=== PATIENT | female | born 1950 | race Caucasian/White ===

== ENCOUNTER 2018-07-13 21:32 | Inpatient (IN) | payer OTHER ==
[~2018-07-13] VITALS: Ht 167.6 cm; Wt 81.6 kg
[2018-07-13 21:38] VITALS: BP 108/77
--- NOTE | 2018-07-13 21:38 | NUR ---
Patient CHUYITA MIGUEL from [facility], transferred to bed 1. RN evaluating patient at bedside.
--- NOTE | 2018-07-13 21:40 | NUR ---
PT VERBALIZED SHE IS IN NO PAIN. FLACC-0. NO S/S OF DISTRESS NOTED
--- NOTE | 2018-07-13 21:40 | NUR ---
68 Y/O F BIB AMBULACE W/C/O HEMATURIA THAT HAS BEEN INCREASING SINCE THIS AM. SKIN IS PINK/WARM/DRY; AAOX1, PERRL; LUNGS CLEAR BL, BREATHING UNLABORED; HR EVEN AND REGULAR, BL PERIPHERAL PULSES PRESENT; BS ACTIVE X4, NO TENDERNESS TO PALPATION, NO HEPATOSPLENOMEGALLY PALPATED, RESONANT TO PERCUSSION; PT DENIES ANY FEVER, CP, SOB, OR COUGH AT THIS TIME; PT STATES 0/10 PAIN AT THIS TIME; VSS; HEMATURIA NOTED IN NORMAN CATHETER, DARK RED; PATIENT POSITIONED FOR COMFORT; HOB ELEVATED; BEDRAILS UP X2; BED DOWN.
[2018-07-13 21:45] VITALS: BP 94/50
[2018-07-13] MEDS ORDERED: NACL 0.9% 500 ML IV ONE ×2 (22:05)
--- NOTE | 2018-07-13 22:30 | NUR ---
PT RESTING COMFORTABLY IN BED. NAD. RR EVEN UNLABORED
[2018-07-13 22:53] LABS: BASOPHILS # (AUTO) 0.1 K/uL (0.00-0.22); BASOPHILS % (AUTO) 1.1 % (0.0-2.0); EOSINOPHILS # (AUTO) 0.3 K/uL (0-0.4); EOSINOPHILS % (AUTO) 2.6 % (0.0-4.0); HEMOGLOBIN 11.3 g/dL (12.0-16.0); LYMPHOCYTES % (AUTO) 15.3 % (20.5-51.1); MEAN CORPUSCULAR HEMOGLOBIN 28 pg (27-31); MEAN CORPUSCULAR HGB CONC 32 g/dL (33-37); MEAN CORPUSCULAR VOLUME 84.8 fL (80-94); MONOCYTES # (AUTO) 0.8 K/uL (0.8-1.0); MONOCYTES % (AUTO) 6.2 % (1.7-9.3); NEUTROPHILS # (AUTO) 9.7 K/uL (1.8-7.7); NEUTROPHILS % (AUTO) 74.8 % (42.2-75.2); PLATELET COUNT (AUTO) 434 K/uL (140-450); RED BLOOD CELL COUNT(AUTO) 4.12 MIL/uL (4.20-5.40); RED CELL DISTRIBUTION WIDTH 15.9 % (11.6-13.7)
[2018-07-13 23:05] LABS: ANION GAP 10.4 (8-16); CARBON DIOXIDE 32.4 mmol/L (21-32); CREATININE 0.5 mg/dL (0.6-1.3); POTASSIUM 4.8 mmol/L (3.5-5.1)
[2018-07-13 23:10] LABS: ALBUMIN 2.6 g/dL (3.4-5.0); TOTAL BILIRUBIN 0.1 mg/dL (0.0-1.0)
[2018-07-13 23:11] LABS: PROTHROMBIN TIME 9.1 secs (10.8-13.4)
[2018-07-13 23:17] LABS: APPEARANCE,URINE TURBID (CLEAR); BILIRUBIN,URINE 3+ (NEGATIVE); BLOOD, URINE 3+ (NEGATIVE); COLOR,URINE RED (YELLOW); LEUKOCYTE ESTERASE ,URINE 2+ (NEGATIVE); NITRITE, URINE POSITIVE (NEGATIVE); PH,URINE 8.5 (5.0-9.0); UGLUCOSE NEGATIVE (NEGATIVE)
[2018-07-13] MEDS ORDERED: LEVOFLOXACIN 500 MG/D5W PREMIX 100 ML IV ONE (23:25)
[2018-07-13] MEDS ORDERED: NACL 0.9% 2,500 ML IV ONE (23:25)
[2018-07-13] MEDS ORDERED: PIPERACILLIN/TAZOBACTAM 3.375 GM in DEXTROSE 5% 50 ML IV ONE (23:25)
[2018-07-13] MEDS ORDERED: PIPERACILLIN/TAZOBACTAM 3.375 GM VIAL IV ONE (23:32)
[2018-07-14] LABS: RBC,URINE TOO NUMEROUS TO COUN /HPF (0-5); WBC,URINE TOO MANY TO COUNT /HPF (0-5)
--- NOTE | 2018-07-14 | NUR ---
PT RESTING COMFORTABLY IN BED. NAD. RR EVEN UNLABORED
[2018-07-14 00:01] LABS: RED BLOOD CELL CASTS,URINE 0-10 /LPF (None Seen)
--- NOTE | 2018-07-14 00:10 | NUR ---
NEW NORMAN CATHETER PLACED AT THIS TIME, 200 ML OUTPUT
[2018-07-14] MEDS ORDERED: ACETAMINOPHEN 325 MG TAB PO PRN (00:25)
[2018-07-14] MEDS ORDERED: ONDANSETRON 4 MG/2 ML VIAL IVP PRN (00:25)
[2018-07-14] MEDS ORDERED: HYDROcodone/APAP 7.5/325 MG 1 TAB PO PRN (00:25)
--- NOTE | 2018-07-14 01:30 | NUR ---
Patient will be admitted to care of DR. WILDE. Admited to TELE. Will go to room 108B. Belongings list completed. Report to OLIVIA COUGHLIN. PICTURE TAKEN OF SACRAL WOUND
[2018-07-14] MEDS ORDERED: DEXTROSE 50% 50 ML SYR IVP PRN (01:35)
[2018-07-14] MEDS ORDERED: SODIUM PHOSPHATE 118 ML ENEM RC PRN (01:35)
[2018-07-14 01:36] LABS: FREE T4 (FREE THYROXINE) 0.94 ng/dL (0.76-1.46); MAGNESIUM 1.3 mg/dL (1.8-2.4); PHOSPHORUS 3.4 mg/dL (2.5-4.9); THYROID STIMULATING HORMONE 1.72 uIU/mL (0.34-3.74)
[2018-07-14 01:40] VITALS: BP 124/63
--- NOTE | 2018-07-14 01:40 | NUR ---
ADMITTED PT. FROM ER PER SHIRA AWAKE AND ALERT. NONE VERBAL. TRACKS TRENCHING MACHINE OPERATOR WITH EYES. MAXIMUM CARE RT GENERALIZED WEAKNESS. HX. OF DEMENTIA .DX. OF UTI AND FECAL IMPACTION. NORMAN CATHETER IN PLACE WITH REDDISH IN COLOR URINE. 02 AT 2LPM/NC WITH 02 SAT AT 98 %. HX. OF DEMENTIA. ROM X 4. BED ALARM ON AND CALL LIGHT WITH IN REACH. CARDIAC TELEMETRY MONITORING. NSR . AFEBRILE. WITH WOUND NOTED TO SACRO-COCCYGEAL . HEEL PROTECTORS IN PLACE. IVF SITE TO RAC#20 . PT. WITH SOFT BM. CLEANED WELL. KEPT WARM, CLEAN AND COMFORTABLE. NEEDS WILL BE ANTICIPATED AND MET. WILL TURN Q 2H.
--- NOTE | 2018-07-14 02:00 | NUR ---
PT.S WOUND TO SACRO - COCCYGEAL AREA CLEANSED WITH NS, PAT DRIED WITH GAUZE AND COVERED WITH STRASORB COMPOSITE. INFORMED RESIDENT MD OF WOUND PRESENT. NO ORDERS FOR NOW.
[2018-07-14] MEDS: DEXT 5% /NACL 0.9% 1,000 ML IV SCH ×2 (02:26→15:33)
--- NOTE | 2018-07-14 03:00 | NUR ---
PT. PLACED ON ISOLATION PRECAUTION PROTOCOL RT HX. 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 AFEBRILE. NEEDS ANTICIPATED AND MET. HAD PASTY IN CONSISTENCY STOOL. KEPT CLEAN AND DRY.
[2018-07-14] MEDS ORDERED: INSU100S53 SC (05:19)
[2018-07-14] MEDS ORDERED: AMLO5TAB PO (05:19)
[2018-07-14] MEDS ORDERED: METF850T PO (05:19)
[2018-07-14] MEDS ORDERED: VAS10 PO (05:19)
[2018-07-14] MEDS ORDERED: OLAN20TA1 PO (05:19)
[2018-07-14] MEDS ORDERED: OXCA150T2 PO (05:19)
[2018-07-14] MEDS ORDERED: ASPI81CT89 PO (05:19)
[2018-07-14] MEDS ORDERED: ATI.5 PO (05:19)
[2018-07-14] MEDS ORDERED: ALBUTEROL SULFATE/IPRATROPIU 3 ML SOL IH PRN (05:20)
[2018-07-14 05:42] VITALS: BP 122/64
[2018-07-14] MEDS ORDERED: MAG SULF 2000 MG/WATER PREMIX 50 ML IV SCH (06:00)
[2018-07-14] MEDS ORDERED: PIPERACILLIN/TAZOBACTAM 3.375 GM VIAL IV ONE (06:02)
[2018-07-14] MEDS: PIPER/TAZO 3.375GM/D5W PREMIX 50 ML IV SCH ×4 (06:04→23:14)
[2018-07-14] MEDS: BLOOD GLUCOSE MONITORING 1 DEV DEV FS SCH ×4 (06:11→20:54)
--- NOTE | 2018-07-14 06:44 | NUR ---
PT. SLEEPING AT THIS TIME. COMFORTABLE. FLACC 0. TELEMETRY MONITORING. NEEDS ANTICIPATED AND MET. TURNED TO SIDES Q 2H . PILLOW SUPPORT TO PRESSURE AREAS.
[2018-07-14 06:51] LABS: BASOPHILS # (AUTO) 0.2 K/uL (0.00-0.22); EOSINOPHILS # (AUTO) 0.2 K/uL (0-0.4); EOSINOPHILS % (AUTO) 1.7 % (0.0-4.0); HEMATOCRIT 32.3 % (36-48); HEMOGLOBIN 10.4 g/dL (12.0-16.0); LYMPHOCYTES # (AUTO) 4.1 K/uL (2.5-16.5); LYMPHOCYTES % (AUTO) 34.6 % (20.5-51.1); MEAN CORPUSCULAR HEMOGLOBIN 27 pg (27-31); MEAN CORPUSCULAR HGB CONC 32 g/dL (33-37); MEAN CORPUSCULAR VOLUME 85.5 fL (80-94); MONOCYTES # (AUTO) 1.9 K/uL (0.8-1.0); MONOCYTES % (AUTO) 16.1 % (1.7-9.3); NEUTROPHILS # (AUTO) 5.4 K/uL (1.8-7.7); NEUTROPHILS % (AUTO) 45.6 % (42.2-75.2); PLATELET COUNT (AUTO) 403 K/uL (140-450); RED BLOOD CELL COUNT(AUTO) 3.78 MIL/uL (4.20-5.40); RED CELL DISTRIBUTION WIDTH 15.8 % (11.6-13.7); WHITE BLOOD COUNT (AUTO) 11.8 K/uL (4.8-10.8)
[2018-07-14 07:08] LABS: ANION GAP 8.2 (8-16); CARBON DIOXIDE 31.9 mmol/L (21-32); CREATININE 0.3 mg/dL (0.6-1.3); POTASSIUM 4.1 mmol/L (3.5-5.1)
[2018-07-14 07:20] LABS: MAGNESIUM 1.3 mg/dL (1.8-2.4); PHOSPHORUS 3.1 mg/dL (2.5-4.9)
--- NOTE | 2018-07-14 07:25 | NUR ---
ENDORSED TO THE NEXT RN FOR CONTINUITY OF CARE. SLEEPING.
--- NOTE | 2018-07-14 07:30 | NUR ---
RECEIVED PT FROM SOFTWARE PUBLISHER NURSE, PT IS ASLEEP AND LYING ON THE BED, RESPIRATIONS EVEN, FALL PRECAUTION INITIATED, SIDE RAILS ARE UP AND CALL LIGHT WITHIN REACH, BED IN LOW POSITION. PT HAS A NORMAN CATHETER IN PLACE AND AN IV LINE ON THE RT AC G.20 WITH D5NS AT 80ML/HR, INTACT AND INFUSING WELL. PT IS ON O2 2L VIA NC, NO SIGN OF DISTRESS NOTED AND WILL CONTINUE TO MONITOR.
[2018-07-14 08:00] VITALS: BP 125/64
[2018-07-14] MEDS ORDERED: BISACODYL 10 MG SUPP RC SCH (08:00)
[2018-07-14 09:02] LABS: CHOL/HDL RATIO 3.7 (1-4.5)
--- NOTE | 2018-07-14 09:46 | NUR ---
PATIENT HAS BEEN SCREENED AND CATEGORIZED HIGH NUTRITION RISK. PATIENT WILL BE SEEN WITHIN 1-2 DAYS OF ADMISSION. 07/14/18 07/15/[address]
[2018-07-14] MEDS: DOCUSATE SODIUM 100 MG GELCAP PO SCH ×2 (09:54→21:13)
[2018-07-14] MEDS: OXcarbazepine 150 MG TAB PO SCH ×2 (09:54→21:14)
[2018-07-14] MEDS: metFORMIN 850 MG TAB PO SCH ×2 (09:54→17:06)
[2018-07-14] MEDS: ASPIRIN 81 MG TAB.CHEW PO SCH (09:54)
[2018-07-14] MEDS: amLODIPine 5 MG TAB PO SCH (09:58)
[2018-07-14] MEDS: ENALAPRIL 10 MG TAB PO SCH ×2 (09:58→21:15)
--- NOTE | 2018-07-14 10:15 | NUR ---
DR. GOMEZ CAME TO THE PT'S ROOM AND CHECKED ON THE PT. SAID THAT HE WILL PLACE AN ORDER FOR THE PT.
--- NOTE | 2018-07-14 10:30 | NUR ---
WOUND CARE NURSE, JOHN, ASSESSED AND REINFORCED THE PT'S SACRO-COCCYGEAL PRESSURE ULCER. PT HAS NO SIGN OF DISTRESS AT THIS TIME.
--- NOTE | 2018-07-14 10:45 | NUR ---
WOUND CARE EVALUATION NOTES: REASON FOR EVALUATION: SACROCOCCYX ULCER COMPLETE SKIN ASSESSMENT DONE WITH PRIMARY RN ON THIS 68 Y/O FEMALE PATIENT FROM [facility] TO [facility], WITH INITIAL DX OF HEMATURIA. PAST MEDICAL HISTORY INCLUDE CHF, DIABETES, HYPERTENSION, CAD AND DEMENTIA. ABOVE INFORMATION OBTAINED FROM THE ADMISSION H&P. PT. ADMITTED WITH PRESSURE INJURY STAGE 4 ON SACRAL COCCYX. LABS ARE WBC 11.8, H/H 10.4/32.3, GLUCOSE 93 AND ALBUMIN 2.6. PATIENT IS NON-VERBAL. SKIN WARM TO TOUCH. NO HAIR GROWTH BLE AND BILATERAL PEDAL PULSES PRESENT. NORMAN CATHETER PATENT AND BLOODY COLORED URINE IN MODERATE AMOUNT OBSERVED. INCONTINENT OF BOWEL X1 DURING ASSESSMENT. PT. NEEDS MAX. ASSISTANCE IN TURNING. PLAN OF CARE DISCUSSED WITH PRIMARY RN. INTEGUMENTARY: -INTERTRIGO TO ABDOMINAL FOLDS, REDNESS WITH SKIN INTACT -SACROCOCCYX PRESSURE ULCER STAGE 4 WITH 1.5X1.5X0.5CM WITH UNDERMINING BETWEEN 6 O'CLOCK TO 8 O'CLOCK WITH DEEPEST AT 7 O'CLOCK MEASURED 0.5 CM DEEP, WOUND BED 100% GRANULATING TISSUE, MOIST, NO ODOR, WOUND EDGE FLAT AND OLIVIA-WOUND SKIN INTACT. -INCONTINENT ASSOCIATED DERMATITIS (IAD) R/L INNER BUTTOCKS EXTENDED TO OLIVIA-ANAL AREA, REDNESS, SKIN INTACT. RECOMMENDATIONS: - CLEAN ABDOMINAL FOLDS WITH MILD SOAP AND WATER, PAT DRY. APPLY INTERDRY CLOTH QD AND CHANGE WEEKLY AND PRN IF SOILING - CLEAN SACROCOCCYX PRESSURE ULCER WITH NS, PAT DRY, APPLY THERAHONEY DRESSING SHEET TO WOUND BED AND COVER WITH OPTIFORM DRESSING QD AND PRN IF SOILING - CLEAN R/L INNER BUTTOCKS EXTENDED TO OLIVIA-ANAL AREA WITH SOAP AND WATER, PAT DRY APPLY HYDRAGUARD BIDWC AND PRN IF SOILING AND OPEN TO AIR -TURN AND REPOSITION PATIENT Q2H TO LEFT AND RIGHT SIDE ONLY TO OFFLOAD SACROCOCCYX -ASSESS AND MONITOR SKIN CONDITION DURING POSITION CHANGE, PLEASE PAY ATTENTION TO SACROCOCCYX -OFFLOAD BILATERAL HEELS BY PLACING PILLOWS UNDER CALVES AT ALL TIMES, UNLESS OTHERWISE CONTRAINDICATED -PRESSURE REDISTRIBUTION SURFACE THERAPY -KEEP SKIN CLEAN AND DRY AT ALL TIMES. RECOMMENDATIONS DISCUSSED WITH PRIMARY RN WILL FOLLOW UP PATIENT Q 7 -10 DAYS AND PRN. PLEASE CONTACT WOUND CARE NURSE FOR ANY CONCERNS AND CHANGES IN WOUND CONDITION Addendum: 07/14/18 at 1118 by Lisandra Doyle RN (Grace) DR. BLANCO NOTIFIED OF RECOMMENDATIONS.
--- NOTE | 2018-07-14 11:30 | NUR ---
DR. BLANCO IS TALKING TO THE PT'S NIECE RIGHT NOW AND EXPLAINING TO THE FAMILY ABOUT THE PT'S STATUS AND PLAN OF CARE.
[2018-07-14 12:00] VITALS: BP 120/74
[2018-07-14] MEDS ORDERED: MAGNESIUM CITRATE 300 ML BTL PO SCH (12:00)
--- NOTE | 2018-07-14 12:30 | NUR ---
Plastic Eye Technician Notes: I attempted to contact Patient's Niece Kristan Cuelloantes to discuss and gather Patient's information. Patient's Niece was not available and I left her a Voice mail MSG with my direct contact information and a request for a call back.
--- NOTE | 2018-07-14 12:44 | NUR ---
S.T. BEDSIDE SWALLOW EVAL COMPLETED See report for details. Pt presents with mod-severe oropharyngeal dysphagia c/b coughing after swallows of thin and nectar thick liquids. Pt is at high risk for aspiration. Recommend: 1) Pureed diet, HONEY THICK LIQUIDS ONLY (including water--needs to be thickened to honey consistency) 2) Crush P.O. meds and mix with puree. 3) 1:1 feeder w/ aspiration precautions. 4) S.T. to f/u x1 in 1 day to ensure tolerance of recommended diet textures. Time in/out [id number] [id number] CL G8997 CL NOMS LEVEL 6
[2018-07-14] MEDS: SENNA 8.6 MG TAB PO SCH ×2 (13:56→17:06)
--- NOTE | 2018-07-14 14:19 | NUR ---
FEED PT WITH APPLE SAUCE AND A HONEY THICKENED LIQUID, ASPIRATION PRECAUTION ENFORCED. PT TOLERATED THE FEEDING WELL WITH NO SIGN OF DISTRESS NOTED. DEBI ALMONTE PT.
--- NOTE | 2018-07-14 15:17 | NUR ---
07/14/18 RD INITIAL ASSESSMENT COMPLETED PLEASE REFER TO NUTRITION ASSESSMENT UNDER CARE ACTIVITY FOR ESTIMATED NUTRITIONAL NEEDS. 1. RECOMMEND CCHO 60 GM PUREED DIET WITH HONEY THICK LIQUIDS 2. RD TO FOLLOW-UP 2-3 DAYS, HIGH RISK SUSAN LOWRY RD
[2018-07-14] MEDS ORDERED: THERAHONEY WOUND DRESSING TP PRN (15:25)
[2018-07-14 16:00] VITALS: BP 124/59
--- NOTE | 2018-07-14 16:30 | NUR ---
PT IS AWAKE AND BLOOD GLUCOSE CHECK DONE AND RESULT IS 99. MEDICATIONS GIVEN AND PT TOLERATED IT. NO SIGN OF DISTRESS NOTED. WILL MONITOR
[2018-07-14] MEDS: Z-GUARD PASTE TP PRN (17:08)
--- NOTE | 2018-07-14 18:00 | NUR ---
PT WAS REPOSITIONED AND CLEANED AND DRESSING WAS CHANGED AND REINFORCED WITH THERAHONEY DRESSING.
--- NOTE | 2018-07-14 19:30 | NUR ---
ASSUMED CARE OF PATIENT, AWAKE, APHASIC. NO DISTRESS NOTED. REPOSITIONED WITH ROAD HOGGER OPERATOR. CALL LIGHT WITHIN REACH.
--- NOTE | 2018-07-14 19:40 | NUR ---
ENDORSED PT TO FORM TAMPER OPERATOR NURSE, GRANT, PT IS ASLEEP LYING ON THE BED WITH RESPIRATIONS EVEN. PT IS TABLE AT THIS TIME.
[2018-07-14 20:00] VITALS: BP 122/52
--- NOTE | 2018-07-14 20:00 | NUR ---
CARE BOARD UPDATED. PLAN OF CARE DISCUSSED WITH PATIENT, NEEDS REINFORCEMENT. CALL LIGHT WITHIN REACH.
[2018-07-14] MEDS ORDERED: OLANZapine 5 MG TAB PO SCH (21:00)
[2018-07-14] MEDS: INSULIN LISPRO SLIDING SCALE 100 UNITS/ML VIAL SUBQ PRN (21:08)
[2018-07-14] MEDS: INSULIN LANTUS 100 UNITS/ML 10 ML VIAL SUBQ SCH (21:09)
[2018-07-14] MEDS: LACTULOSE 20 GM/30 ML UDC PO SCH (21:13)
[2018-07-14] MEDS: OLANZapine 5 MG TAB PO SCH (21:15)
--- NOTE | 2018-07-14 21:15 | NUR ---
REPOSITIONED TO LEFT SIDE LYING. DRESSING ON SACRAL AREA DRY AND INTACT. DUE MEDS GIVEN. IV INFILTRATED. CALL LIGHT WITHIN REACH.
--- NOTE | 2018-07-15 | NUR ---
SLEEPING WELL. VITAL SIGNS STABLE. NO COMPLAINS OR DISTRESS NOTED. CALL LIGHT WITHIN REACH. REPOSITIONED TO SUPINE POSITION.
[2018-07-15 00:02] VITALS: BP 120/56
[2018-07-15] MEDS: DEXT 5% /NACL 0.9% 1,000 ML IV SCH (02:42)
[2018-07-15 04:37] VITALS: BP 110/65
--- NOTE | 2018-07-15 04:38 | NUR ---
VITAL SIGNS STABLE. SLEEPING WELL, EASILY AROUSABLE. CALL LIGHT WITHIN REACH. NO COMPLAINS. REPOSITIONED TO LEFT SIDE LYING. PERICARE DONE.
[2018-07-15] MEDS: PIPER/TAZO 3.375GM/D5W PREMIX 50 ML IV SCH ×3 (05:03→17:55)
[2018-07-15] MEDS: BLOOD GLUCOSE MONITORING 1 DEV DEV FS SCH ×4 (06:08→20:55)
--- NOTE | 2018-07-15 07:19 | NUR ---
ENDORSED CARE AT BEDSIDE WITH ELTON RN ,PATIENT IN STABLE CONDITION.
--- NOTE | 2018-07-15 07:30 | NUR ---
RECEIVED REPORT FROM PAPER MACHINE TENDER RN. PATIENT IS DROWSY AND LETHARGIC. PT IS APHASIC. UNABLE TO ASSESS ORIENTATION AT THIS TIME. F/C IN PLACE DRAINING DARK SHARDA URINE. ON 2L NC, SATURATING WELL. WOUND ON SACROCOCCYX, DRESSING CLEAN, DRY, INTACT. INCONTINENT DERMATITIS TO PERINEAL AREA. PER PAPER MACHINE TENDER RN, PT HAS BEEN HAVING MULTIPLE EPISODES OF DIARRHEA. LUNGS CTA/DIMINISHED. IV SITE PATENT AND ASYMPTOMATIC, RUNNING IVF PER MD ORDERS. ALL SAFETY PRECAUTIONS IN PLACE, WILL CONTINUE TO MONITOR.
[2018-07-15 08:00] VITALS: BP 93/42
[2018-07-15 08:51] LABS: BASOPHILS % (AUTO) 0.3 % (0.0-2.0); EOSINOPHILS # (AUTO) 0.3 K/uL (0-0.4); EOSINOPHILS % (AUTO) 3.7 % (0.0-4.0); HEMATOCRIT 33.6 % (36-48); HEMOGLOBIN 10.7 g/dL (12.0-16.0); LYMPHOCYTES # (AUTO) 1.6 K/uL (2.5-16.5); LYMPHOCYTES % (AUTO) 17.9 % (20.5-51.1); MEAN CORPUSCULAR HEMOGLOBIN 28 pg (27-31); MEAN CORPUSCULAR HGB CONC 32 g/dL (33-37); MEAN CORPUSCULAR VOLUME 86.4 fL (80-94); MONOCYTES # (AUTO) 0.6 K/uL (0.8-1.0); NEUTROPHILS # (AUTO) 6.4 K/uL (1.8-7.7); NEUTROPHILS % (AUTO) 71.1 % (42.2-75.2); PLATELET COUNT (AUTO) 394 K/uL (140-450); RED BLOOD CELL COUNT(AUTO) 3.88 MIL/uL (4.20-5.40); RED CELL DISTRIBUTION WIDTH 16.1 % (11.6-13.7); WHITE BLOOD COUNT (AUTO) 8.9 K/uL (4.8-10.8)
[2018-07-15] MEDS: SENNA 8.6 MG TAB PO SCH ×2 (09:00→20:43)
[2018-07-15] MEDS: LACTULOSE 20 GM/30 ML UDC PO SCH (09:00)
[2018-07-15] MEDS: DOCUSATE SODIUM 100 MG GELCAP PO SCH ×3 (09:00→21:00)
[2018-07-15] MEDS: ENALAPRIL 10 MG TAB PO SCH ×2 (09:00→20:42)
[2018-07-15] MEDS: amLODIPine 5 MG TAB PO SCH (09:00)
[2018-07-15] MEDS: OXcarbazepine 150 MG TAB PO SCH ×2 (09:05→20:43)
[2018-07-15] MEDS: metFORMIN 850 MG TAB PO SCH ×2 (09:05→18:02)
[2018-07-15] MEDS: ASPIRIN 81 MG TAB.CHEW PO SCH (09:06)
[2018-07-15 09:09] LABS: ANION GAP 4.3 (8-16); CARBON DIOXIDE 33.6 mmol/L (21-32); CREATININE 0.3 mg/dL (0.6-1.3); POTASSIUM 3.9 mmol/L (3.5-5.1)
[2018-07-15 09:13] LABS: MAGNESIUM 1.8 mg/dL (1.8-2.4); PHOSPHORUS 3.4 mg/dL (2.5-4.9)
[2018-07-15] MEDS ORDERED: MAG SULF 2000 MG/WATER PREMIX 100 ML IV ONE (09:20)
[2018-07-15] MEDS ORDERED: MAGNESIUM SULFATE 4GM in STERILE WATER 100 ML PREMIX IV SCH (10:00)
--- NOTE | 2018-07-15 10:02 | NUR ---
PATIENT'S BP IS NOW MORE HEMODYNAMICALLY STABLE AT 119/54. DR. BLANCO HAS BEEN NOTIFIED OF THIS PER HIS REQUEST. Addendum: 07/15/18 at 1836 by Amy Truong Meng, RN COMPARED TO 0800 VITALS CHARTED IN INTERVENTIONS.
--- NOTE | 2018-07-15 10:16 | NUR ---
PATIENT ASSESSMENT COMPLETED LOC AWAKE AND ALERT RESPONSIVE TO EARLY MORNING VERBAL COMMANDS PATIENT C/O SOB AND NASAL DRYNESS FROM SUPPLEMENTAL OXYGEN USE REVIEWED CXR DATED 07/14/2018 [facility] PRN THERAPY GIVEN AT THIS TIME POST HHN THERAPY ADDED HUMIDIFIER EARLY MORNING TO REVIEW PULMONARY STATUS, DIAGNOSTIC FINDINGS WITH DR VIKI WILDE OR RESIDENT MD FOR CHANGE IN HHN THERAPY FREQUENCY Addendum: 07/15/18 at 1040 by Dennis Bailey RT REVIEWED FOREMENTIONED WITH DR RUPINDER BLANCO WILL INITIATE FREQUENCY CHANGE TO Q6WA WITH SUPPLEMENTAL OXYGEN GREATER THAN 92%
[2018-07-15] MEDS: NACL 0.9% 1,000 ML IV SCH (10:20)
--- NOTE | 2018-07-15 10:56 | NUR ---
COAGULATED BLOOD NOTED IN PERINEAL AREA. UNABLE TO TELL WHERE THE BLOOD ORIGINATES FROM. DR. BLANCO HAS BEEN NOTIFIED AND HAS SEEN THE PATIENT PERSONALLY. WILL CONTINUE TO MONITOR. PT HAS NO COMPLAINTS OF PAIN OR DISCOMFORT AT THIS TIME. VITALS STABLE.
--- NOTE | 2018-07-15 11:50 | NUR ---
PER , CONTINUE TO GIVE LAXATIVES AND STOOL SOFTENERS. Addendum: 07/15/18 at 1830 by Amy Truong Meng RN WILL ENDORSE TO MANAGER BALANCE MADYSON.
[2018-07-15 12:00] VITALS: BP 120/44
[2018-07-15] MEDS: ALBUTEROL SULFATE/IPRATROPIU 3 ML SOL IH SCH ×2 (14:07→19:31)
--- NOTE | 2018-07-15 14:11 | NUR ---
LARGE LOOSE/MUSHY BOWEL MOVEMENT. WILL CONTINUE TO MONITOR.
--- NOTE | 2018-07-15 15:40 | NUR ---
SMALL LOOSE BOWEL MOVEMENT. NORMAN CATH DRAINING RED COLORED URINE. DR. BLANCO IS AWARE. WILL CONTINUE TO MONITOR.
[2018-07-15 16:00] VITALS: BP 119/58
[2018-07-15] MEDS: CHLORHEXADINE GLUC 2% CLOTH TP SCH (17:56)
[2018-07-15] MEDS: MUPIROCIN CA NASAL 2% 1GM TUBE NS SCH (17:56)
--- NOTE | 2018-07-15 18:05 | NUR ---
PT BEING UNCOOPERATIVE WITH TREATMENT. METFORMIN CRUSHED WITH APPLE SAUCE WAS TAKEN WITHOUT ISSUE. HOWEVER BECAME COMBATIVE WHEN ADMINISTERING THE BACTROBAN NASALLY AND CHLORHEXIDINE CLOTH. BACTROBAN WAS APPLIED TO BILATERAL NARES BUT WAS UNABLE TO MASSAGE FOR FULL MINUTE PATIENT WAS PUSHING ME AWAY. CHLORHEXIDINE WIPES WERE USED ON BILATERAL LOWER EXTREMITIES ONLY. WILL ENDORSE TO PORTRAIT PAINTER RN.
--- NOTE | 2018-07-15 18:34 | NUR ---
BLOOD NOTED ON HORTENCIA. PT HAS NO COMPLAINTS OF PAIN OR DISCOMFORT. VITALS ARE STABLE. WILL INFORM SURVEILLANCE OBSERVER RN AND MD.
--- NOTE | 2018-07-15 18:35 | NUR ---
COMPARED TO 0800 VITALS CHARTED IN INTERVENTIONS. Addendum: 07/15/18 at 1836 by Amy Truong Meng, RN WRONG TIME.
--- NOTE | 2018-07-15 18:37 | NUR ---
PER CERTIFIED DRUG COUNSELOR, PT IS COMBATIVE AGAIN. PT NOT SEEN PULLING AT IV. PT PULLING AT GOWN AND HEART MONITOR WAS DISCONNECTED. CONNECTED PT BACK TO HEART MONITOR. WILL CONTINUE TO MONITOR.
--- NOTE | 2018-07-15 19:28 | NUR ---
ENDORSED PLAN OF CARE TO SPORTS TEAM MANAGER RN. PT IN STABLE CONDITION. ENDORSED THE NEED TO MONITOR FOR BLOOD FROM PERINEAL AREA AND BLOOD IN F/C.
--- NOTE | 2018-07-15 19:29 | NUR ---
RECEIVED BEDSIDE REPORT FROM DAY SHIFT NURSE CAROLYN RN, PT STABLE, NO DISTRESS NOTED, IV TO R WRIST 20G PATENT, INTACT, INFUSING WELL PT ON 2LPM O2 VIA NC, NO SOB, PT AGITATED, KEEPS TRYING TO TAKE GOWN OFF, TAKES OFF TELE MONITOR, PT ALSO THREW ALL PILLOWS AND BLANKETS TO THE FLOOR, PT STATED SHE WANTS TO GO HOME. ORIENT PT. INITIAL ASSESSMENT DONE, ALL SAFETY PRECAUTION MET, CALL LIGHT WITHIN REACH, WILL CONTINUE FREQUENT MONITORING OF PT.
[2018-07-15] MEDS: LORazepam 0.5 MG TAB PO PRN (19:41)
--- NOTE | 2018-07-15 19:41 | NUR ---
PT CONTINUOUSLY TAKING TELE MONITOR OFF, EVEN AFTER ORIENTATION, PT STATED SHE DOES NOT WANT TO BE HER AND WANTS TO GO, MEDICATION PER ORDER FOR AGITATION GIVEN, PT TOLERATED WELL, NO DISTRESS NOTED, CALL LIGHT WITHIN REACH, WILL CONTINUE TO MONITOR. Addendum: 07/15/18 at 2332 by Piper Leo RN NORMAN CATH IN PLACE DRAINING DARK SHARDA COLORED URINE, HEMATURIA NOTED.
[2018-07-15 20:00] VITALS: BP 142/73
[2018-07-15] MEDS: OLANZapine 5 MG TAB PO SCH (20:55)
[2018-07-15] MEDS: INSULIN LANTUS 100 UNITS/ML 10 ML VIAL SUBQ SCH (20:59)
--- NOTE | 2018-07-15 21:15 | NUR ---
DUE MEDICATION ADMINISTERED, PT TOLERATED WELL, EXCEPT FOR THE COLACE, PT SPITS IT OUT, PT RESTING, NO DISTRESS NOTED, CALL LIGHT WITHIN REACH, WILL CONTINUE TO MONITOR.
--- NOTE | 2018-07-15 21:45 | NUR ---
NOTIFIED DR. WILLIAM REGARDING PT STILL AGITATED AFTER ADMINISTRATION OF ATIVAN AND PM MEDICATION, STATED UNDERSTANDING, AND STATED WILL ORDER MEDICATION FOR PT. WILL CONTINUE WITH ORDERS.
[2018-07-15] MEDS ORDERED: HALOPERIDOL 5 MG TAB PO SCH (22:00)
--- NOTE | 2018-07-15 22:04 | NUR ---
HALDOL PER ORDER ADMINISTERED, PT TOLERATED WELL, NO DISTRESS NOTED, CALL LIGHT WITHIN REACH, WILL CONTINUE TO MONITOR.
--- NOTE | 2018-07-15 23:05 | NUR ---
PT SLEEPING COMFORTABLY, NO DISTRESS NOTED, CALL LIGHT WITHIN REACH, WILL CONTINUE TO MONITOR.
[2018-07-16] VITALS: BP 143/70
[2018-07-16] MEDS: PIPER/TAZO 3.375GM/D5W PREMIX 50 ML IV SCH ×4 (00:06→20:44)
--- NOTE | 2018-07-16 01:20 | NUR ---
NORMAN LEAKING WITH BLOOD AND CLOTS, NOTIFIED DR. WILLIAM AND JANEE THAT NORMAN WILL BE CHANGED, STATED UNDERSTANDING, AND STATED WILL ORDER NORMAN IRRIGATION, NORMAN CHANGED, PT TOLERATED WELL, NO DISTRESS NOTED, NOTED HEMATURIA, URINE COLOR IS RED, NOTED BLOOD CLOTS CLOGGING OLD CATH, LEFT PT RESTING, NO DISTRESS NOTED, CALL LIGHT WITHIN REACH, WILL CONTINUE TO MONITOR.
[2018-07-16] MEDS: Z-GUARD PASTE TP PRN (01:32)
[2018-07-16] MEDS ORDERED: HALOPERIDOL 10 MG/5 ML UDC PO ONE (02:40)
--- NOTE | 2018-07-16 02:58 | NUR ---
PT AGITATED, TRYING TO GET OUT OF BED, THREW ALL BEDDINGS AND GOWN ON THE FLOOR, PT TOOK OFF NC, AND TELE MONITORING, NOTIFIED DR. WELLER, STATED UNDERSTANDING, AND ORDERED HALDOL PO, MEDICATION ADMINISTERED, PT TOLERATED WELL, NO DISTRESS NOTED, CALL LIGHT WITHIN REACH, WILL CONTINUE FREQUENT MONITORING.
[2018-07-16] MEDS ORDERED: HALOPERIDOL 5 MG TAB PO SCH (03:00)
[2018-07-16] MEDS: NACL 0.9% 1,000 ML IV SCH ×2 (03:19→23:00)
[2018-07-16 04:00] VITALS: BP 124/91
--- NOTE | 2018-07-16 04:09 | NUR ---
PT STILL NOT SLEEPING, KEEPS THROWING LINEN TO THE FLOOR, PT RESTING, CALL LIGHT WITHIN REACH, WILL CONTINUE TO MONITOR.
[2018-07-16] MEDS: BLOOD GLUCOSE MONITORING 1 DEV DEV FS SCH ×4 (06:30→20:59)
[2018-07-16 06:34] LABS: BASOPHILS # (AUTO) 0.1 K/uL (0.00-0.22); BASOPHILS % (AUTO) 0.5 % (0.0-2.0); EOSINOPHILS # (AUTO) 0.4 K/uL (0-0.4); EOSINOPHILS % (AUTO) 3.5 % (0.0-4.0); HEMATOCRIT 33.8 % (36-48); HEMOGLOBIN 10.7 g/dL (12.0-16.0); LYMPHOCYTES # (AUTO) 1.7 K/uL (2.5-16.5); LYMPHOCYTES % (AUTO) 15.5 % (20.5-51.1); MEAN CORPUSCULAR HEMOGLOBIN 27 pg (27-31); MEAN CORPUSCULAR HGB CONC 32 g/dL (33-37); MEAN CORPUSCULAR VOLUME 86.1 fL (80-94); MONOCYTES # (AUTO) 0.6 K/uL (0.8-1.0); NEUTROPHILS # (AUTO) 8.5 K/uL (1.8-7.7); NEUTROPHILS % (AUTO) 75.5 % (42.2-75.2); PLATELET COUNT (AUTO) 376 K/uL (140-450); RED BLOOD CELL COUNT(AUTO) 3.92 MIL/uL (4.20-5.40); WHITE BLOOD COUNT (AUTO) 11.2 K/uL (4.8-10.8)
[2018-07-16 07:03] LABS: ANION GAP 6.8 (8-16); CARBON DIOXIDE 30.2 mmol/L (21-32); CREATININE 0.2 mg/dL (0.6-1.3)
[2018-07-16] MEDS: ALBUTEROL SULFATE/IPRATROPIU 3 ML SOL IH SCH ×3 (07:03→19:36)
[2018-07-16 07:07] LABS: MAGNESIUM 2.1 mg/dL (1.8-2.4); PHOSPHORUS 2.2 mg/dL (2.5-4.9)
--- NOTE | 2018-07-16 07:31 | NUR ---
ENDORSED PT TO DAY SHIFT NURSE LALA COUGHLIN, PT STABLE, NO DISTRESS NOTED, CALL LIGHT WITHIN REACH.
--- NOTE | 2018-07-16 07:32 | NUR ---
RECEIVED REPORT FROM THE DIRECTOR AUDIENCE MARKETING NURSE AT BEDSIDE FOR CONTINUITY OF CARE. PT IS AWAIT, CONFUSED, TRYING TO GET OUT OF BED. PT IS BEDBOUND SO SHE IS UNABLE TO. PT SPEAKS FAROESE BUT MOST OF HER TEETH ARE OUT SO HARD TO UNDERSTAND WHAT SHE IS SAYING. PER DIRECTOR AUDIENCE MARKETING PT HAS A SACRAL WOUND ON COCCYX. REDNESS ON THE ABD FOLDS, INTERDRY IN PLACE. LBM WAS EARLY THIS MORNING. HAD 4 BM'S THROUGH YESTERDAY AND THIS MORNING. IV ON R WRIST 20G NS AT 50ML INFUSING. HAS A NEW NORMAN INSERTED, DRAINING URINE WELL. IT IS BRIGHT RED BLOOD. THERE IS AN ORDER FOR IRRIGATION. WILL DO SO THIS MORNING. NC O2 2L IN PLACE. V/S WITHIN NORMAL RANGE. AFEBRILE. 97 O2 SATURATION. DENIES PAIN. WILL CONTINUE TO MONITOR PT.
[2018-07-16 08:00] VITALS: BP 141/67
[2018-07-16] MEDS: ENALAPRIL 10 MG TAB PO SCH ×2 (08:04→20:45)
[2018-07-16] MEDS: amLODIPine 5 MG TAB PO SCH (08:04)
[2018-07-16] MEDS: OXcarbazepine 150 MG TAB PO SCH ×2 (08:04→20:45)
[2018-07-16] MEDS: DOCUSATE SODIUM 100 MG GELCAP PO SCH ×2 (08:04→20:45)
[2018-07-16] MEDS: metFORMIN 850 MG TAB PO SCH ×2 (08:05→17:22)
[2018-07-16] MEDS: LACTULOSE 20 GM/30 ML UDC PO SCH (08:05)
--- NOTE | 2018-07-16 08:10 | NUR ---
ADMINISTERED MORNING MEDS, CRUSHED IN APPLE SAUCE. PT TOLERATED WELL. EATING BREAKFAST, LABORER WHARF FEEDING. PT EATING WELL. NO SIGNS OF DISTRESS. WILL CONTINUE TO MONITOR PT.
[2018-07-16] MEDS ORDERED: HALOPERIDOL 5 MG TAB PO PRN (10:25)
[2018-07-16] MEDS ORDERED: SODIUM PHOS / POTASSIUM PHOS 1 PKT PDR PO SCH (10:30)
--- NOTE | 2018-07-16 10:57 | NUR ---
PT SLEEPING. THREW BLANKETS AND PILLOW ON THE FLOOR. NO SIGNS OF DISTRESS. WILL CONTINUE TO MONITOR PT.
--- NOTE | 2018-07-16 11:40 | NUR ---
HOGSHEAD OPENER note (dysphagia therapy) [id number]. S: HOGSHEAD OPENER provided pt with dysphagia therapy following clearance by RN (Rosana). Pt was positioned upright in bed using HOB and bed tilt functions for dysphagia therapy session and then pt returned to low/locked bed position of pt's indicated comfort following session completion. At end of session, pt requested to watch TV. HOGSHEAD OPENER attempted to provide for pt, but discovered that pt's TV isn't functioning. HOGSHEAD OPENER alerted gas charger who reported she would f/u to have pt's TV malfunction addressed. Pt pleasant and cooperative with all PO trials. O/A: Pt was provided with education regarding purpose of HOGSHEAD OPENER's visit and rationale for recommendations. It is not clear that pt able to benefit from education provided at this time. Pt demonstrated delayed/prolonged/weak coughing with thin liquid trials by spoon. Pt demonstrated decreased breath sounds with nectar-thick liquid trials by spoon. Pt tolerated applesauce trials and honey-thick liquid trials by spoon without difficulty and without overt signs/symptoms of aspiration at this time. P: Recommend: 1) continue pureed textures 2) continue honey-thick liquids 3) continue strict aspiration precautions (including pt must be fully awake/alert/upright for any PO intakes, alternate small/slow bites and sips, stop PO if pt becomes less alert/SOB/coughing) 4) continue 100% feeding assistance 5) discharge pt from HOGSHEAD OPENER intervention as pt tolerating recommended textures without overt signs/symptoms of aspiration at this time. Physician may reorder if further concerns arise, as appropriate. HOGSHEAD OPENER d/w MADYSON (Rosana) prior to and following dysphagia therapy session.
--- NOTE | 2018-07-16 11:51 | NUR ---
CANS VACUUM TESTER note (discharge summary report) 11:50. Pt was provided with bedside swallow evaluation on 07/14/2018 with recommendations for pureed textures, honey-thick liquids, 100% feeding assistance, aspiration precautions, dysphagia therapy x1. Pt was provided with dysphagia therapy on 07/16/2018 with same continued recommendations based on pt's demonstrated difficulties with thinner liquid consistencies. Recommend: 1) continue pureed textures 2) continue honey-thick liquids 3) continue strict aspiration precautions (including pt must be fully awake/alert/upright for any PO intakes, alternate small/slow bites and sips, stop PO if pt becomes less alert/SOB/coughing) 4) continue 100% feeding assistance 5) discharge pt from CANS VACUUM TESTER intervention as pt tolerating recommended textures without overt signs/symptoms of aspiration at this time. Physician may reorder if further concerns arise, as appropriate. G-codes: [id number] [facility] NOMS level 3.
--- NOTE | 2018-07-16 11:52 | NUR ---
PER JUAN JOSE COUGHLIN CM, SHE GOT THE AUTH YESTERDAY FROM [facility] FOR TRANSPORT BACK TO [facility] UPON DISCHARGE. THE AUTH FOR [facility] IS [id number].
[2018-07-16 12:00] VITALS: BP 127/73
--- NOTE | 2018-07-16 13:00 | NUR ---
WOUND CARE DONE. PT TOLERATED WELL. WILL CONTINUE TO MONITOR PT.
--- NOTE | 2018-07-16 15:16 | NUR ---
07/16/18 RD FOLLOW UP COMPLETED PLEASE REFER TO NUTRITION ASSESSMENT UNDER CARE ACTIVITY FOR ESTIMATED NUTRITIONAL NEEDS. 1. CONTINUE CCHO PUREE WITH HONEY THICK LIQUIDS DIET TOLERATED 2. RD TO FOLLOW-UP 3-5 DAYS, MODERATE RISK SUSAN LOWRY RD
--- NOTE | 2018-07-16 15:30 | NUR ---
Chocolate Coater Notes: I called Patient's Niece Sabrina Ferraro at to discuss and gather additional information about Patient. Per Sabrina there is no advance directives in placed Patient and she is the only one that is usually contacted in regards to her care and Healthcare decision making. Per Sabrina her aunt (Patient) is given good care in SNF [facility] and has no issues with her medications and has all special equipment necessary for her care. I discussed with Patient's niece Sabrina about patient's anticipated discharge Thursday or Thursday back to SNF. Per Nicyril she is on agreement for patient to return to [facility] when she is ready and clear to discharge from [facility].
--- NOTE | 2018-07-16 15:39 | NUR ---
Train Operations Manager Notes: I Faxed [facility] Patient's Clinical information on preparation and anticipation for possible discharge on Thursday or Thursday. I called [facility] SNF Leonela from admissions and I spoke to Jamal due to Leonela been on another call to verify that SNF has received Patient's Clinical information send by these com writer. Per Jamal he thanked me for the information and confirmed that my faxed was received. I informed Jamal that Patient has an anticipated discharge for Thursday or Thursday. Jamal thanked me for the information and stated that he will talk to Leonela from admissions for her to return my call with a accepting MD and Room number. enterprise architect manager Silvia is aware.
[2018-07-16 16:00] VITALS: BP 145/74
--- NOTE | 2018-07-16 16:35 | NUR ---
BS CHECK DONE. BS 111. NO COVERAGE NEEDED. WILL CONTINUE TO MONITOR PT.
[2018-07-16] MEDS: MUPIROCIN CA NASAL 2% 1GM TUBE NS SCH (17:23)
[2018-07-16] MEDS: CHLORHEXADINE GLUC 2% CLOTH TP SCH (17:23)
--- NOTE | 2018-07-16 17:25 | NUR ---
CRUSHED METFORMIN IN APPLE SAUCE. PT TOLERATED WELL. WILL CONTINUE TO MONITOR PT.
--- NOTE | 2018-07-16 19:02 | NUR ---
IRRIGATED THE NORMAN CATH WITH 60CC OF NS. PT TOLERATED WELL. SAW SOME CLUMPS OF BLOOD IN THE URINE. WILL CONTINUE TO MONITOR PT.
--- NOTE | 2018-07-16 19:37 | NUR ---
ENDORSED PT TO THE HEAD OF GEOGRAPHY NURSE AT BEDSIDE FOR CONTINUITY OF CARE. PT IN STABLE CONDITION.
--- NOTE | 2018-07-16 19:40 | NUR ---
RECEIVED PATIENT RESTING COMFORTABLE ON BED WITH NORMAN CATHETER IN PLACE DRAINING BRIGHT RED URINE. DISCUSS TO PATIENT PLAN OF CARE. FALL PRECAUTION APPLIED. CALL LIGHT WITHIN REACH. WILL CONTINUE TO MONITOR.
[2018-07-16 20:00] VITALS: BP 123/59
[2018-07-16] MEDS: OLANZapine 5 MG TAB PO SCH (20:45)
[2018-07-16] MEDS: SENNA 8.6 MG TAB PO SCH (20:45)
[2018-07-16] MEDS: INSULIN LANTUS 100 UNITS/ML 10 ML VIAL SUBQ SCH (21:00)
--- NOTE | 2018-07-16 21:00 | NUR ---
PATIENT CLEANED AND REPOSITIONED TO HER SIDE . MEDICATION GIVEN TOLERATED WELL. BS TAKEN AND RECORDED. V/S WNL. ALL NEEDS GIVEN. NO S/S OF DISTRESS NOTED AT THIS TIME. FALL PRECAUTION APPLIED. WILL CONTINUE TO MONITOR.
--- NOTE | 2018-07-16 21:30 | NUR ---
PATIENT HAD LOOSE BOWEL MOVEMENT , CLEANED AND CHANGED AND REPOSITIONED. APPLIED Z-GUARD TO SACRAL AREA AND INTER DRY IN BETWEEN ABDOMINAL FOLDS. PATIENT WAS QUIET AND COOPERATIVE AT THIS TIME. NO SIGN OF AGGRESSIVENESS NOTED. [address] IN SEMI-FOWLERS POSITION. CALL LIGHT WITHIN REACH. FALL PRECAUTION IMPLEMENTED. NO S/S OF DISTRESS NOTED AT THIS TIME. WILL CONTINUE TO MONITOR.
[2018-07-17] VITALS: BP 137/74
--- NOTE | 2018-07-17 | NUR ---
NORMAN CATHETER IRRIGATED 60CC OF NS. BRIGHT RED URINE DRAINING WITH SOME CLOTS. PATIENT TOLERATED WELL. WILL CONTINUE TO MONITOR. V/S TAKEN AND RECORDED IN WNL. NO S/S OF DISTRESS NOTED . WITH [address] PATIENT IN SEMI FOWLERS POSITION. CALL LIGHTS WITHIN REACH. FALL PRECAUTION APPLIED. WILL CONTINUE TO MONITOR.
--- NOTE | 2018-07-17 02:30 | NUR ---
SEEN PATIENT ASLEEP ON BED AND REPOSITIONED TO HER SIDE AND PLACE IN COMFORTABLE POSITION. CALL LIGHT WITHIN REACH. FALL PRECAUTION APPLIED. NO S/S OF DISTRESS NOTED. WILL CONTINUE TO MONITOR.
[2018-07-17 04:00] VITALS: BP 117/64
[2018-07-17] MEDS: PIPER/TAZO 3.375GM/D5W PREMIX 50 ML IV SCH ×3 (04:50→20:53)
--- NOTE | 2018-07-17 06:00 | NUR ---
NORMAN CATHETER IRRIGATED WITH 60CC NS. DRAINING COLOR SHARDA URINE . NO S/S OF DISTRESS NOTED AT THIS TIME. WILL CONTINUE TO MONITOR.
[2018-07-17] MEDS: BLOOD GLUCOSE MONITORING 1 DEV DEV FS SCH ×4 (06:05→20:46)
[2018-07-17] MEDS: ALBUTEROL SULFATE/IPRATROPIU 3 ML SOL IH SCH ×3 (06:38→19:42)
[2018-07-17 06:47] LABS: BASOPHILS % (AUTO) 0.3 % (0.0-2.0); EOSINOPHILS # (AUTO) 0.4 K/uL (0-0.4); EOSINOPHILS % (AUTO) 3.3 % (0.0-4.0); HEMATOCRIT 30.9 % (36-48); LYMPHOCYTES # (AUTO) 1.8 K/uL (2.5-16.5); LYMPHOCYTES % (AUTO) 16.2 % (20.5-51.1); MEAN CORPUSCULAR HEMOGLOBIN 28 pg (27-31); MEAN CORPUSCULAR HGB CONC 32 g/dL (33-37); MEAN CORPUSCULAR VOLUME 86.1 fL (80-94); MONOCYTES # (AUTO) 0.6 K/uL (0.8-1.0); MONOCYTES % (AUTO) 5.2 % (1.7-9.3); NEUTROPHILS # (AUTO) 8.5 K/uL (1.8-7.7); PLATELET COUNT (AUTO) 349 K/uL (140-450); RED BLOOD CELL COUNT(AUTO) 3.59 MIL/uL (4.20-5.40); WHITE BLOOD COUNT (AUTO) 11.4 K/uL (4.8-10.8)
[2018-07-17 07:13] LABS: ANION GAP 6.9 (8-16); CREATININE 0.2 mg/dL (0.6-1.3); POTASSIUM 3.9 mmol/L (3.5-5.1)
--- NOTE | 2018-07-17 07:15 | NUR ---
ENDORSEMENT GIVEN TO [facility] SHIFT NURSE AT BEDSIDE FOR CONTINUITY OF CARE. PATIENT IN STABLE CONDITION.
[2018-07-17 07:19] LABS: MAGNESIUM 1.8 mg/dL (1.8-2.4); PHOSPHORUS 2.9 mg/dL (2.5-4.9)
[2018-07-17 07:46] VITALS: BP 144/78
--- NOTE | 2018-07-17 10:00 | NUR ---
ADMINISTERED SCHEDULED MEDICATIONS WITH APPLESAUCE. PATIENT TOLERATED WELL
[2018-07-17] MEDS: LACTOBACILLUS RHAMNOSUS GG 1 EACH CAP PO SCH (10:08)
[2018-07-17] MEDS: DOCUSATE SODIUM 100 MG GELCAP PO SCH ×2 (10:08→20:49)
[2018-07-17] MEDS: amLODIPine 5 MG TAB PO SCH (10:09)
[2018-07-17] MEDS: OXcarbazepine 150 MG TAB PO SCH ×2 (10:09→20:49)
[2018-07-17] MEDS: ENALAPRIL 10 MG TAB PO SCH ×2 (10:10→20:50)
[2018-07-17] MEDS: metFORMIN 850 MG TAB PO SCH ×2 (10:10→17:00)
[2018-07-17] MEDS: LACTULOSE 20 GM/30 ML UDC PO SCH (10:10)
--- NOTE | 2018-07-17 11:15 | NUR ---
PT STARTED ORAL CONTRAST AT THIS TIME, PT TO FINISH DRINKING ENTIRE CONTRAST WITHIN 3HRS PER DATA REVIEW SPECIALIST. PRIMARY NURSE MADE AWARE.
[2018-07-17 12:00] VITALS: BP 124/70
--- NOTE | 2018-07-17 12:10 | NUR ---
NORMAN CATHETER IRRIGATED WITH 60CC OF NS. NO RESISTANCE NOTED. PATIENT TOLERATED WELL
--- NOTE | 2018-07-17 12:59 | NUR ---
pt sleeping with no signs of distress at this time, no hhn given
--- NOTE | 2018-07-17 15:20 | NUR ---
PATIENT HAD A BM. STOOL LOOSED AND SMALL IN AMOUNT. PATIENT CLEANED AND REPOSITIONED FOR COMFORT. PT LEFT FOR CT
--- NOTE | 2018-07-17 15:35 | NUR ---
PATIENT BACK FROM CT
[2018-07-17 16:00] VITALS: BP 141/64
[2018-07-17] MEDS ORDERED: THERAHONEY WOUND DRESSING TP PRN (16:10)
[2018-07-17] MEDS: NACL 0.9% 1,000 ML IV SCH (17:05)
[2018-07-17] MEDS: MUPIROCIN CA NASAL 2% 1GM TUBE NS SCH (17:48)
[2018-07-17] MEDS: CHLORHEXADINE GLUC 2% CLOTH TP SCH (17:48)
--- NOTE | 2018-07-17 19:01 | NUR ---
BLOOD SUGAR RECHECKED 118. NO S/S OF DISTRESS NOTED
--- NOTE | 2018-07-17 19:30 | NUR ---
PATIENT REPORT GIVEN AT BEDSIDE. PATIENT ENDORSED IN STABLE CONDITION
--- NOTE | 2018-07-17 19:31 | NUR ---
RECEIVED REPORT FROM DAY SHIFT NURSE AT PT BEDSIDE. PT IN STABLE CONDITION. PT IS A/O X1. IV ACCESS TO R WRIST 20G WITH IVF RUNNING PER MD ORDERS. NORMAN CATHETER IN PLACE DRAINING PALE YELLOW URINE. FLACC-0. PT HAS WOUND TO SACRAL AREA COVERED WITH OPTIFORM DRESSING. DRESSING DRY AND INTACT. BED IS LOCKED, LOW POSITION AND SIDE RAILS UP X2. BOARD UPDATED. CALL LIGHT WITHIN REACH. WILL CONTINUE TO MONITOR PT.
[2018-07-17 20:00] VITALS: BP 154/77
[2018-07-17] MEDS: SENNA 8.6 MG TAB PO SCH (20:49)
[2018-07-17] MEDS: OLANZapine 5 MG TAB PO SCH (20:50)
[2018-07-17] MEDS: INSULIN LANTUS 100 UNITS/ML 10 ML VIAL SUBQ SCH (20:51)
--- NOTE | 2018-07-17 20:53 | NUR ---
ADMINISTERED SCHEDULED MEDICATIONS. PT TOLERATED WELL. BS CHECKED, 103. NO COVERAGE NEEDED PER MD ORDERS. WILL CONTINUE TO MONITOR PT.
--- NOTE | 2018-07-17 23:05 | NUR ---
PT ASLEEP IN BED NO SIGNS OF DISTRESS. WILL CONTINUE TO MONITOR.
[2018-07-18] VITALS: BP 150/73
--- NOTE | 2018-07-18 00:05 | NUR ---
NORMAN CATHETER IRRIGATED WITH 60CC. NO CLOTS NOTED. PT RESTING COMFORTABLY IN BED. WILL CONTINUE TO MONITOR.
[2018-07-18] MEDS ORDERED: THERAHONEY WOUND DRESSING TP SCH (01:00)
[2018-07-18] MEDS: THERAHONEY WOUND DRESSING TP SCH ×2 (01:18→13:00)
[2018-07-18] MEDS: NACL 0.9% 1,000 ML IV SCH (01:41)
--- NOTE | 2018-07-18 01:45 | NUR ---
NEW BAG OF IVF STARTED. ALL PT NEEDS ARE MET AT THIS TIME. WILL CONTINUE TO MONITOR.
[2018-07-18 04:00] VITALS: BP 117/69
[2018-07-18] MEDS: PIPER/TAZO 3.375GM/D5W PREMIX 50 ML IV SCH ×3 (04:30→21:24)
--- NOTE | 2018-07-18 04:30 | NUR ---
ORDERED MEDICATION ADMINISTERED. PT HAD SMALL LOOSE BM. ASSISTED CNAS IN CLEANING, CHANGING AND TURNING PT. SACRAL DRESSING CHANGED. PT TOLERATED WELL. WILL CONTINUE TO MONITOR.
[2018-07-18] MEDS: BLOOD GLUCOSE MONITORING 1 DEV DEV FS SCH ×4 (05:39→21:13)
--- NOTE | 2018-07-18 05:40 | NUR ---
BS CHECKED, 75. NO INSULIN COVERAGE NEEDED PER MD ORDERS. NORMAN CATHETER IRRIGATED WITH 60CC. NO CLOTS NOTED. DRAINING WELL. WILL CONTINUE TO MONITOR.
[2018-07-18] MEDS: ALBUTEROL SULFATE/IPRATROPIU 3 ML SOL IH SCH ×3 (06:50→19:20)
[2018-07-18 07:03] LABS: BASOPHILS # (AUTO) 0.1 K/uL (0.00-0.22); BASOPHILS % (AUTO) 0.8 % (0.0-2.0); EOSINOPHILS # (AUTO) 0.4 K/uL (0-0.4); EOSINOPHILS % (AUTO) 3.6 % (0.0-4.0); HEMATOCRIT 28.4 % (36-48); HEMOGLOBIN 9.2 g/dL (12.0-16.0); LYMPHOCYTES % (AUTO) 17.7 % (20.5-51.1); MEAN CORPUSCULAR HEMOGLOBIN 28 pg (27-31); MEAN CORPUSCULAR HGB CONC 32 g/dL (33-37); MEAN CORPUSCULAR VOLUME 85.5 fL (80-94); MONOCYTES # (AUTO) 0.6 K/uL (0.8-1.0); MONOCYTES % (AUTO) 5.5 % (1.7-9.3); NEUTROPHILS # (AUTO) 8.4 K/uL (1.8-7.7); NEUTROPHILS % (AUTO) 72.4 % (42.2-75.2); PLATELET COUNT (AUTO) 379 K/uL (140-450); RED BLOOD CELL COUNT(AUTO) 3.33 MIL/uL (4.20-5.40); RED CELL DISTRIBUTION WIDTH 15.9 % (11.6-13.7); WHITE BLOOD COUNT (AUTO) 11.5 K/uL (4.8-10.8)
[2018-07-18 07:19] LABS: ANION GAP 1.3 (8-16); CARBON DIOXIDE 36.5 mmol/L (21-32); POTASSIUM 3.8 mmol/L (3.5-5.1)
--- NOTE | 2018-07-18 07:26 | NUR ---
ENDORSED PT TO DAY SHIFT NURSE FOR CONTINUITY OF CARE. PT IN STABLE CONDITION.
[2018-07-18 07:27] LABS: MAGNESIUM 1.7 mg/dL (1.8-2.4); PHOSPHORUS 2.9 mg/dL (2.5-4.9)
[2018-07-18 07:28] LABS: CREATININE 0.2 mg/dL (0.6-1.3)
[2018-07-18 08:00] VITALS: BP 139/66
--- NOTE | 2018-07-18 08:00 | NUR ---
Received patient awake and alert in the morning, she did eat some of her breakfast, she is a feeder, and will eat most of food given to her. No co pain. She has a sacral ulcer with drsg intact. Repositioned to comfort. Emmanuel Mckeon RN
[2018-07-18] MEDS: LACTULOSE 20 GM/30 ML UDC PO SCH (09:59)
[2018-07-18] MEDS: OXcarbazepine 150 MG TAB PO SCH ×2 (09:59→21:24)
[2018-07-18] MEDS: amLODIPine 5 MG TAB PO SCH (10:00)
[2018-07-18] MEDS: LORazepam 0.5 MG TAB PO PRN (10:00)
[2018-07-18] MEDS: LACTOBACILLUS RHAMNOSUS GG 1 EACH CAP PO SCH (10:01)
[2018-07-18] MEDS: metFORMIN 850 MG TAB PO SCH ×2 (10:01→18:25)
[2018-07-18] MEDS: ENALAPRIL 10 MG TAB PO SCH ×2 (10:01→21:25)
[2018-07-18] MEDS: DOCUSATE SODIUM 100 MG GELCAP PO SCH ×2 (10:02→21:24)
--- NOTE | 2018-07-18 10:30 | NUR ---
Patient incontinent of stool, and cleaned, did the drsg change, and therahoney applied with optifoam drsd. The patient manually disimpacted, and no stool reachable with two-to three fingers. I did rotate fingers around the anus for stimulation, with minimal result. Emmanuel Mckeon RN
[2018-07-18] MEDS: INSULIN LISPRO SLIDING SCALE 100 UNITS/ML VIAL SUBQ PRN (11:53)
[2018-07-18 12:00] VITALS: BP 153/70
--- NOTE | 2018-07-18 12:00 | NUR ---
Patient BS 111, and no insulin necessary per do. Patient did eat 80% of food for lunch. She is a feeder and does have a good appetite. Emmanuel Mckeon RN
--- NOTE | 2018-07-18 13:33 | NUR ---
PT SLEEPING WITH NO SIGNS OF DISTRESS NOTED AT THIS TIME NO HHN GIVEN
[2018-07-18] MEDS ORDERED: MAG SULF 2000 MG/WATER PREMIX 50 ML IV SCH (15:35)
[2018-07-18 16:00] VITALS: BP 135/64
--- NOTE | 2018-07-18 18:00 | NUR ---
Patient BS 116, and no insulin necessary per sliding scale per do. Patient resting quietly in bed. Well eat dinner soon with assist. Emmanuel Mckeon RN
[2018-07-18] MEDS: MUPIROCIN CA NASAL 2% 1GM TUBE NS SCH (18:32)
[2018-07-18] MEDS: CHLORHEXADINE GLUC 2% CLOTH TP SCH (18:32)
--- NOTE | 2018-07-18 19:26 | NUR ---
RECEIVED REPORT FROM DAY SHIFT NURSE AT PT BEDSIDE. PT IN STABLE CONDITION. PT IS A/O X1. PT IS APHASIC. PT ON NC 1L. SKIN IS NONINTACT WITH SACRAL PU COVERED WITH DRESSING. DRESSING IS DRY AND INTACT. IV ACCESS IN R WRIST 20G WITH IVF RUNNING PER MD ORDERS. IS IS PATENT AND INTACT. FLACC-0. HEEL PROTECTORS IN PLACE. BED IS LOCKED, LOW POSITION WITH SIDE RAILS UP X2. BOARD UPDATED. CALL LIGHT IS WITHIN REACH. WILL CONTINUE TO MONITOR PT.
[2018-07-18 20:00] VITALS: BP 134/65
[2018-07-18] MEDS: SENNA 8.6 MG TAB PO SCH (21:24)
[2018-07-18] MEDS: OLANZapine 5 MG TAB PO SCH (21:24)
[2018-07-18] MEDS: INSULIN LANTUS 100 UNITS/ML 10 ML VIAL SUBQ SCH (21:26)
--- NOTE | 2018-07-18 21:27 | NUR ---
ADMINISTERED SCHEDULED MEDICATIONS. PT TOLERATED WELL. BS CHECKED, 145. NO COVERAGE NEEDED PER MD ORDERS. WILL CONTINUE TO MONITOR PT.
--- NOTE | 2018-07-18 23:30 | NUR ---
TAP WATER ENEMA COMPLETED. PT TOLERATED WELL. WILL CONTINUE TO MONITOR.
[2018-07-19] VITALS: BP 147/78
--- NOTE | 2018-07-19 00:01 | NUR ---
NORMAN CATHETER IRRIGATED WITH 60CC. DRAINING WELL, NO CLOTS NOTED. INTERDRY DRESSING SOILED, CHANGED.
[2018-07-19] MEDS: NACL 0.9% 1,000 ML IV SCH ×2 (00:15→16:18)
--- NOTE | 2018-07-19 00:16 | NUR ---
STARTED NEW BAG OF IVF. PT STILL HAVING SMALL AMOUNT OF LOOSE STOOL. NO SIGNS OF DISTRESS. WILL CONTINUE TO MONITOR PT.
[2018-07-19] MEDS: THERAHONEY WOUND DRESSING TP SCH ×2 (01:00→13:07)
--- NOTE | 2018-07-19 01:23 | NUR ---
SUNNY WOUND DRESSING NOT APPLIED BECAUSE DRESSING NOT AVAILABLE. WOULD CLEANED AND COVERED WITH OPTIFORM DRESSING. Addendum: 07/19/18 at 0404 by Teodora Roberts RN SUNNY FOUND AND APPLIED.
--- NOTE | 2018-07-19 03:56 | NUR ---
PT AWAKE IN BED. NO SIGNS OF DISTRESS. WILL CONTINUE TO MONITOR PT.
[2018-07-19 04:00] VITALS: BP 149/64
[2018-07-19] MEDS: PIPER/TAZO 3.375GM/D5W PREMIX 50 ML IV SCH ×3 (04:52→20:46)
--- NOTE | 2018-07-19 04:53 | NUR ---
ADMINISTERED ORDERED MEDICATION. PT TOLERATED WELL. NO SIGNS OF DISTRESS. WILL CONTINUE TO MONITOR PT.
--- NOTE | 2018-07-19 05:37 | NUR ---
BS CHECKED, 65. GAVE PT ORANGE JUICE. PT TOLERATED WELL. WILL RECHECK SUGAR IN 30MIN. NORMAN CATHETER IRRIGATED WITH 60CC. NORMAN DRAINING WELL. NO CLOTS NOTED. URINE IS CLEAR YELLOW.
--- NOTE | 2018-07-19 06:05 | NUR ---
BS RECHECKED, 102. PT HAS NO S/SX OF DISTRESS. WILL CONTINUE TO MONITOR.
[2018-07-19] MEDS: ALBUTEROL SULFATE/IPRATROPIU 3 ML SOL IH SCH ×3 (06:24→19:00)
[2018-07-19 06:39] LABS: BASOPHILS # (AUTO) 0.1 K/uL (0.00-0.22); BASOPHILS % (AUTO) 0.6 % (0.0-2.0); EOSINOPHILS # (AUTO) 0.4 K/uL (0-0.4); EOSINOPHILS % (AUTO) 3.2 % (0.0-4.0); HEMATOCRIT 30.8 % (36-48); LYMPHOCYTES # (AUTO) 1.6 K/uL (2.5-16.5); LYMPHOCYTES % (AUTO) 13.9 % (20.5-51.1); MEAN CORPUSCULAR HEMOGLOBIN 28 pg (27-31); MEAN CORPUSCULAR HGB CONC 32 g/dL (33-37); MEAN CORPUSCULAR VOLUME 85.5 fL (80-94); MONOCYTES # (AUTO) 0.5 K/uL (0.8-1.0); MONOCYTES % (AUTO) 4.5 % (1.7-9.3); NEUTROPHILS # (AUTO) 9.2 K/uL (1.8-7.7); NEUTROPHILS % (AUTO) 77.8 % (42.2-75.2); PLATELET COUNT (AUTO) 337 K/uL (140-450); RED BLOOD CELL COUNT(AUTO) 3.61 MIL/uL (4.20-5.40); RED CELL DISTRIBUTION WIDTH 15.8 % (11.6-13.7); WHITE BLOOD COUNT (AUTO) 11.8 K/uL (4.8-10.8)
[2018-07-19] MEDS: BLOOD GLUCOSE MONITORING 1 DEV DEV FS SCH ×4 (06:42→20:45)
[2018-07-19 06:56] LABS: ANION GAP 7.8 (8-16); CARBON DIOXIDE 32.4 mmol/L (21-32); CREATININE 0.3 mg/dL (0.6-1.3); POTASSIUM 4.2 mmol/L (3.5-5.1)
--- NOTE | 2018-07-19 07:05 | NUR ---
ENDORSED PT TO DAY SHIFT NURSE FOR CONTINUITY OF CARE. PT IN STABLE CONDITION.
--- NOTE | 2018-07-19 07:15 | NUR ---
RECEIVED REPORT FROM RING SPINNER NURSE, PT IS AAOX1, BEDBOUND, PT IS ON O2 NC 2 L, IV ON HER RIGHT WRIST, PATENT, INTACT, FLUSHING WELL, PT HAS SACRAL PRESSURE ULCER AND INTER DRY IN BETWEEN ABDOMINAL SKIN FOLD, NORMAN CATHETER IS IN PLACE AT THIS TIME, CLEAR YELLOW URINE NOTED IN NORMAN BAG, NO S/S OF RESPIRATORY DISTRESS OR DISCOMFORT NOTED, DISCUSSED PLAN OF CARE WITH PT, PT UNABLE TO VERBALIZE UNDERSTANDING, SAFETY/FALL PRECAUTIONS ARE IN PLACE, CALL LIGHT IS WITHIN REACH, WILL CONTINUE TO MONITOR.
[2018-07-19 08:00] VITALS: BP 148/66
[2018-07-19] MEDS: DOCUSATE SODIUM 100 MG GELCAP PO SCH (09:25)
[2018-07-19] MEDS: metFORMIN 850 MG TAB PO SCH ×2 (09:25→17:53)
[2018-07-19] MEDS: amLODIPine 5 MG TAB PO SCH (09:25)
[2018-07-19] MEDS: ENALAPRIL 10 MG TAB PO SCH ×2 (09:25→20:46)
[2018-07-19] MEDS: LACTOBACILLUS RHAMNOSUS GG 1 EACH CAP PO SCH (09:26)
[2018-07-19] MEDS: LACTULOSE 20 GM/30 ML UDC PO SCH (09:26)
[2018-07-19] MEDS: OXcarbazepine 150 MG TAB PO SCH ×2 (09:26→20:47)
--- NOTE | 2018-07-19 09:26 | NUR ---
DUE MEDICATIONS GIVEN. PT TOLERATED WELL. PT HAD TROUBLE TRYING TO SWALLOW COLACE CAPSULE. WILL ASK DOCTOR TO SWITCH TO LIQUID FORM COLACE.
--- NOTE | 2018-07-19 10:30 | NUR ---
PATIENT GIVEN A BED BATH AND REPOSITIONED FOR COMFORT. PT TOLERATED WELL, ALL NEEDS ARE MET, CALL LIGHT WITHIN REACH, WILL CONTINUE TO MONITOR.
[2018-07-19 12:00] VITALS: BP 109/63
--- NOTE | 2018-07-19 12:55 | NUR ---
PT RESTING IN BED, EATING LUNCH WITH INTERPRETER FOR THE DEAF'S ASSISTANCE. DUE PIGGYBACK IV KARINA HELD. WILL CONTINUE TO MONITOR.
[2018-07-19 13:59] LABS: MAGNESIUM 1.8 mg/dL (1.8-2.4); PHOSPHORUS 3.1 mg/dL (2.5-4.9)
[2018-07-19] MEDS ORDERED: MAGNESIUM CITRATE 300 ML BTL PO SCH (15:30)
[2018-07-19 16:00] VITALS: BP 120/59
[2018-07-19] MEDS: MUPIROCIN CA NASAL 2% 1GM TUBE NS SCH (17:48)
[2018-07-19] MEDS: CHLORHEXADINE GLUC 2% CLOTH TP SCH (17:56)
--- NOTE | 2018-07-19 19:10 | NUR ---
RECEIVED REPORT FROM DAY SHIFT NURSE AT PT BEDSIDE. PT IN STABLE CONDITION. PT IS CURRENTLY SLEEPING WITH NO SIGNS OF DISTRESS. PT HAS NC 2L. IV ACCESS R WRIST 20 WITH IVF RUNNING PER MD ORDERS. IV IS PATENT AND INTACT. PT HAS NORMAN CATHETER DRAINING CLEAR YELLOW URINE. PT HAS SACRAL PU. WILL APPLY NEW OPTIFORM DRESSING AND THERAHONEY PER ORDERS. BED IS LOCKED, LOW POSITION WITH SIDE RAILS UP X2. BOARD UPDATED. CALL LIGHT IS WITHIN REACH. WILL CONTINUE TO MONITOR PT.
--- NOTE | 2018-07-19 19:10 | NUR ---
ENDORSED PT TO RAIL CAR MECHANIC NURSE FOR CONTINUITY OF CARE. PT STABLE AT THIS TIME.
[2018-07-19 20:00] VITALS: BP 138/62
[2018-07-19] MEDS: DOCUSATE 100 MG/10 ML UDC PO SCH (20:46)
[2018-07-19] MEDS: SENNA 8.6 MG TAB PO SCH (20:47)
[2018-07-19] MEDS: OLANZapine 5 MG TAB PO SCH (20:47)
[2018-07-19] MEDS: INSULIN LANTUS 100 UNITS/ML 10 ML VIAL SUBQ SCH (20:48)
--- NOTE | 2018-07-19 20:48 | NUR ---
ADMINISTERED SCHEDULED MEDICATIONS. PT TOLERATED WELL. BS CHECKED, 94. WILL CONTINUE TO MONITOR PT.
--- NOTE | 2018-07-19 22:59 | NUR ---
PT ASLEEP IN BED. NO S/SX OF DISTRESS. WILL CONTINUE TO MONITOR PT.
[2018-07-20] VITALS (11 sets, daily range): BP systolic 124–150; BP diastolic 56–78
--- NOTE | 2018-07-20 00:05 | NUR ---
PT VS WITHIN NORMAL LIMITS. NORMAN CATHETER IRRIGATED. PT HAS NO SIGNS OF DISTRESS. WILL CONTINUE TO MONITOR.
[2018-07-20] MEDS: THERAHONEY WOUND DRESSING TP SCH ×2 (01:01→13:00)
--- NOTE | 2018-07-20 02:13 | NUR ---
PT ASLEEP IN BED WITH NO SIGNS OF DISTRESS. WILL CONTINUE TO MONITOR PT.
[2018-07-20] MEDS: NACL 0.9% 1,000 ML IV SCH (04:21)
[2018-07-20] MEDS: PIPER/TAZO 3.375GM/D5W PREMIX 50 ML IV SCH (04:21)
--- NOTE | 2018-07-20 04:22 | NUR ---
ADMINISTERED ORDERED MEDICATION. NEW BAG OF IVF STARTED. PT HAS NO SIGNS OF DISTRESS. WILL CONTINUE TO MONITOR.
[2018-07-20] MEDS: BLOOD GLUCOSE MONITORING 1 DEV DEV FS SCH ×4 (05:40→21:02)
--- NOTE | 2018-07-20 05:41 | NUR ---
BS CHECKED, 68. ORANGE JUICE WITH SUGAR GIVEN. WILL CONTINUE TO MONITOR PT.
--- NOTE | 2018-07-20 06:31 | NUR ---
BS RECHECKED 66. ADDITIONAL ORANGE JUICE WITH SUGAR GIVEN. BS RECHECKED, 72. WILL CONTINUE TO MONITOR PT.
[2018-07-20] MEDS: ALBUTEROL SULFATE/IPRATROPIU 3 ML SOL IH SCH ×3 (06:39→19:00)
--- NOTE | 2018-07-20 07:04 | NUR ---
ENDORSED PT TO DAY SHIFT NURSE FOR CONTINUITY OF CARE. PT IN STABLE CONDITION.
--- NOTE | 2018-07-20 07:10 | NUR ---
RECEIVED REPORT FROM RACECAR DRIVER NURSE, PT IS AAOX1, BEDBOUND, PT IS ON O2 NC 2 L, IV ON HER RIGHT WRIST, PATENT, INTACT, FLUSHING WELL, PT HAS SACRAL PRESSURE ULCER AND INTER DRY IN BETWEEN ABDOMINAL SKIN FOLD, NORMAN CATHETER IS IN PLACE AT THIS TIME, CLEAR YELLOW URINE NOTED IN NORMAN BAG, NO S/S OF RESPIRATORY DISTRESS OR DISCOMFORT NOTED, DISCUSSED PLAN OF CARE WITH PT, PT UNABLE TO VERBALIZE UNDERSTANDING, SAFETY/FALL PRECAUTIONS ARE IN PLACE, CALL LIGHT IS WITHIN REACH, WILL CONTINUE TO MONITOR.
[2018-07-20] MEDS ORDERED: MAGNESIUM CITRATE 300 ML BTL PO SCH (07:45)
[2018-07-20 07:50] LABS: BASOPHILS # (AUTO) 0.1 K/uL (0.00-0.22); EOSINOPHILS # (AUTO) 0.4 K/uL (0-0.4); EOSINOPHILS % (AUTO) 3.7 % (0.0-4.0); HEMATOCRIT 30.2 % (36-48); HEMOGLOBIN 9.8 g/dL (12.0-16.0); LYMPHOCYTES # (AUTO) 1.6 K/uL (2.5-16.5); LYMPHOCYTES % (AUTO) 16.1 % (20.5-51.1); MEAN CORPUSCULAR HEMOGLOBIN 28 pg (27-31); MEAN CORPUSCULAR HGB CONC 32 g/dL (33-37); MONOCYTES # (AUTO) 0.4 K/uL (0.8-1.0); MONOCYTES % (AUTO) 4.3 % (1.7-9.3); NEUTROPHILS # (AUTO) 7.7 K/uL (1.8-7.7); NEUTROPHILS % (AUTO) 74.9 % (42.2-75.2); PLATELET COUNT (AUTO) 345 K/uL (140-450); RED BLOOD CELL COUNT(AUTO) 3.47 MIL/uL (4.20-5.40); WHITE BLOOD COUNT (AUTO) 10.2 K/uL (4.8-10.8)
[2018-07-20 07:51] LABS: MAGNESIUM 1.8 mg/dL (1.8-2.4); PHOSPHORUS 2.8 mg/dL (2.5-4.9)
[2018-07-20 08:53] LABS: CARBON DIOXIDE 33.1 mmol/L (21-32); CREATININE 0.4 mg/dL (0.6-1.3); POTASSIUM 4.1 mmol/L (3.5-5.1)
[2018-07-20] MEDS: OXcarbazepine 150 MG TAB PO SCH (08:54)
[2018-07-20] MEDS: metFORMIN 850 MG TAB PO SCH ×2 (08:54→16:34)
[2018-07-20] MEDS: ENALAPRIL 10 MG TAB PO SCH ×2 (08:55→20:59)
[2018-07-20] MEDS: amLODIPine 5 MG TAB PO SCH (08:55)
[2018-07-20] MEDS: LACTULOSE 20 GM/30 ML UDC PO SCH (08:56)
[2018-07-20] MEDS: LACTOBACILLUS RHAMNOSUS GG 1 EACH CAP PO SCH (08:56)
[2018-07-20] MEDS: DOCUSATE 100 MG/10 ML UDC PO SCH ×2 (08:56→20:58)
--- NOTE | 2018-07-20 08:57 | NUR ---
DUE MEDICATIONS GIVEN, PT TOLERATED WELL, WILL CONTINUE TO MONITOR.
--- NOTE | 2018-07-20 09:06 | NUR ---
SPOKE WITH TRAY FROM [facility]. FAXED [facility]CR[facility] AND MED LIST TO HER AT [phone]
--- NOTE | 2018-07-20 11:26 | NUR ---
PT TURNED FOR COMFORT, PT HAD A MODERATE AMOUNT BOWEL MOVEMENT, WILL HOLD OFF ON ENEMA AT THIS TIME. PT CLEANED. ALL NEEDS MET AT THIS TIME. WILL CONTINUE TO MONITOR.
--- NOTE | 2018-07-20 11:51 | NUR ---
I CALLED THE PATIENT'S NIECE (ANILA ANDERSON) I LET HER KNOW I WAS CALLING FROM [facility] TO OBTAIN OVER THE PHONE CONSENT FOR A PROCEDURE. I LEFT THE PHONE NUMBER TO THE MED SURG/TELE NURSES STATION AND ASKED HER TO GIVE ME A CALL BACK.
--- NOTE | 2018-07-20 11:58 | NUR ---
I CALLED DR. GOMEZ ON HIS CELL PHONE, I DID SPEAK TO HIM. I LET HIM KNOW I WAS CALLING BECAUSE PHARMACY DOES NOT CARRY TRILEPTAL 100MG. PER DR. GOMEZ GIVE TRILEPTAL 150MG ONCE A DAY AT BEDTIME. I CALLED PHARMACY AND SPOKE TO TERESA TO LET HIM KNOW.
[2018-07-20] MEDS: SENNA 8.6 MG TAB PO SCH ×2 (13:19→17:00)
--- NOTE | 2018-07-20 13:48 | NUR ---
PT SLEEPING WITH NO SIGNS OF DISTRESS NOTED AT THIS TIME NO HHN GIVEN
--- NOTE | 2018-07-20 15:47 | NUR ---
BLOOD SUGAR CHECK 47. WILL ADMINISTER D5O IVP.
--- NOTE | 2018-07-20 15:50 | NUR ---
I SPOKE TO DR. PEACE I LET HIM KNOW THE PATIENT BLOOD SUGAR HAD DROPPED. I ASKED IF HE COULD CHANGE THE IV FLUIDS SINCE THE PATIENT HAD BEEN NPO SINCE LUNCH.
--- NOTE | 2018-07-20 16:00 | NUR ---
PT NEW IV STARTED ON LEFT FA, # 22, PT TOLERATED WELL. IV ON THE RIGHT WRIST REMOVED, CATHETER TIP INTACT.
[2018-07-20] MEDS: DEXT 5% /NACL 0.9% 1,000 ML IV SCH (16:20)
--- NOTE | 2018-07-20 17:26 | NUR ---
PATIENT TAKEN OFF UNIT TAKEN TO OR FOR PROCEDURE. I DID CALL THE PATIENT'S NIECE AND LEFT HER A MESSAGE TO LET HER KNOW THE PATIENT WOULD BE GOING TO HAVE A PROCEDURE DONE TODAY.
[2018-07-20] MEDS ORDERED: SEVOFLURANE 250 ML BTL INH ONE (17:45)
[2018-07-20] MEDS ORDERED: MIDAZOLAM 2 MG/2 ML VIAL ONE (18:02)
[2018-07-20] MEDS ORDERED: fentaNYL 0.05 MG/ML VIAL ONE (18:02)
[2018-07-20] MEDS ORDERED: NACL 0.9% 1,000 ML IV SCH (18:51)
[2018-07-20] MEDS ORDERED: BLOOD GLUCOSE MONITORING 1 DEV DEV FS SCH (18:55)
--- NOTE | 2018-07-20 19:15 | NUR ---
ENDORSED PT TO SUPERVISOR KENNEL NURSE FOR CONTINUITY OF CARE, PT IS IN OR AT THIS TIME.
--- NOTE | 2018-07-20 19:16 | NUR ---
RECEIVED BEDSIDE REPORT FROM DAY SHIFT NURSE DIEUDONNE COUGHLIN, PT CURRENTLY IN OR FOR PROCEDURE.
--- NOTE | 2018-07-20 19:16 | NUR ---
PT IN O.R. FOR PROCEDURE
--- NOTE | 2018-07-20 19:40 | NUR ---
PT ARRIVED AT UNIT VIA BED FROM O.R., PT STABLE, NO DISTRESS NOTED, REPORT RECEIVED FROM OR NURSE EMILI RN, PT ON 2LPM O2 VIA NC,NO SOB, IV TO L FA 22G PATENT, INTACT, INFUSING WELL, NORMAN IN PLACE DRAINING YELLOW URINE, FLACC 0, V/S TAKEN WNL, INITIAL ASSESSMENT DONE, ALL SAFETY PRECAUTION MET, WILL CONTINUE TO MONITOR.
[2018-07-20] MEDS: OLANZapine 5 MG TAB PO SCH (20:58)
[2018-07-20] MEDS: INSULIN LANTUS 100 UNITS/ML 10 ML VIAL SUBQ SCH (21:00)
[2018-07-20] MEDS ORDERED: OXcarbazepine 150 MG TAB PO SCH ×2 (21:00)
--- NOTE | 2018-07-20 21:02 | NUR ---
DUE MEDICATION ADMINISTERED, PT TOLERATED WELL, PT BLOOD SUGAR 79, LANTUS HELD, NOTIFIED DR. WELLER, PT RESTING, NO DISTRESS NOTED, CALL LIGHT WITHIN REACH, WILL CONTINUE TO MONITOR.
[2018-07-21] VITALS: BP 104/53
--- NOTE | 2018-07-21 00:40 | NUR ---
BRONWYN NOT AVAILABLE AT UNIT, WOUND DRESSING CHANGED, CLEANED WITH SOAP AND WATER, Z GUARD APPLIED, WILL ENDORSED TO DAY SHIFT NURSE TO OBTAIN BRONWYN FROM PHARMACY, PT RESTING, NO DISTRESS NOTED, CALL LIGHT WITHIN REACH, WILL CONTINUE TO MONITOR.
[2018-07-21] MEDS: THERAHONEY WOUND DRESSING TP SCH ×2 (00:41→13:00)
--- NOTE | 2018-07-21 02:30 | NUR ---
PT RESTING, NO DISTRESS NOTED, CALL LIGHT WITHIN REACH, WILL CONTINUE TO MONITOR.
--- NOTE | 2018-07-21 04:11 | NUR ---
PT RESTING, NO DISTRESS NOTED, CALL LIGHT WITHIN REACH, WILL CONTINUE TO MONITOR.
[2018-07-21] MEDS: DEXT 5% /NACL 0.9% 1,000 ML IV SCH (04:30)
[2018-07-21] MEDS: BLOOD GLUCOSE MONITORING 1 DEV DEV FS SCH ×2 (06:33→11:30)
[2018-07-21 07:13] LABS: BASOPHILS % (AUTO) 0.3 % (0.0-2.0); EOSINOPHILS # (AUTO) 0.2 K/uL (0-0.4); EOSINOPHILS % (AUTO) 2.1 % (0.0-4.0); HEMATOCRIT 34.1 % (36-48); HEMOGLOBIN 10.9 g/dL (12.0-16.0); LYMPHOCYTES # (AUTO) 1.5 K/uL (2.5-16.5); LYMPHOCYTES % (AUTO) 12.3 % (20.5-51.1); MEAN CORPUSCULAR HEMOGLOBIN 28 pg (27-31); MEAN CORPUSCULAR HGB CONC 32 g/dL (33-37); MEAN CORPUSCULAR VOLUME 86.7 fL (80-94); MONOCYTES # (AUTO) 0.5 K/uL (0.8-1.0); MONOCYTES % (AUTO) 4.1 % (1.7-9.3); NEUTROPHILS # (AUTO) 9.6 K/uL (1.8-7.7); NEUTROPHILS % (AUTO) 81.2 % (42.2-75.2); PLATELET COUNT (AUTO) 378 K/uL (140-450); RED BLOOD CELL COUNT(AUTO) 3.94 MIL/uL (4.20-5.40); RED CELL DISTRIBUTION WIDTH 15.9 % (11.6-13.7); WHITE BLOOD COUNT (AUTO) 11.8 K/uL (4.8-10.8)
[2018-07-21 07:20] LABS: ANION GAP 3.6 (8-16); CARBON DIOXIDE 34.4 mmol/L (21-32); CREATININE 0.1 mg/dL (0.6-1.3)
--- NOTE | 2018-07-21 07:20 | NUR ---
ENDORSED PT TO DAY SHIFT NURSE MARLEN RN, PT STABLE, NO DISTRESS NOTED, CALL LIGHT WITHIN REACH.
--- NOTE | 2018-07-21 07:21 | NUR ---
REPORT RECEIVED FROM DOG POUND ATTENDANT NURSE. PATIENT IS AWAKE AND ALERT APPEARS IN NO ACUTE DISTRESS. RESPIRATION EVEN UNLABORED IS ON 1L NC. SKIN WARM AND DRY. COLOR WITHIN NORMAL LIMITS. PLAN OF CARE REVIEWED. ALL SAFETY MEASURES IN PLACE WILL CONTINUE TO MONITOR
[2018-07-21 08:00] VITALS: BP 136/59
[2018-07-21] MEDS: metFORMIN 850 MG TAB PO SCH (08:00)
[2018-07-21] MEDS ORDERED: MIRABULK PO (08:34)
[2018-07-21] MEDS ORDERED: DOCU-299 PO (08:34)
[2018-07-21] MEDS ORDERED: SENN-89 PO (08:34)
[2018-07-21] MEDS: LACTOBACILLUS RHAMNOSUS GG 1 EACH CAP PO SCH (08:39)
[2018-07-21] MEDS: ENALAPRIL 10 MG TAB PO SCH (08:39)
[2018-07-21] MEDS: LACTULOSE 20 GM/30 ML UDC PO SCH (08:40)
[2018-07-21] MEDS: DOCUSATE 100 MG/10 ML UDC PO SCH (08:40)
[2018-07-21] MEDS: amLODIPine 5 MG TAB PO SCH (08:40)
[2018-07-21] MEDS: SENNA 8.6 MG TAB PO SCH ×2 (08:41→13:00)
[2018-07-21] MEDS: ALBUTEROL SULFATE/IPRATROPIU 3 ML SOL IH SCH ×2 (08:41→14:10)
--- NOTE | 2018-07-21 08:51 | NUR ---
DUE MEDS GIVEN. PATIENT TOLERATED CRUSHED MEDS WITH APPLE SAUCE WITHOUT PROBLEM. METFORMIN HELD FOR BLOOD SUGAR 47 YESTERDAY WILL NOTIFY .
--- NOTE | 2018-07-21 10:49 | NUR ---
PERICARE DONE, WOUND PHOTO TAKEN, WOUND CARE DONE, PT CARLI WELL, PT POSITION CHANGED, PT APPEARS ON NAD, WILL CONTIUE TO MOTNIOR,
--- NOTE | 2018-07-21 12:02 | NUR ---
PER TRAY AT [facility] PT CAN GO TO ROOM [address] RAINEY. [facility] [phone]. CALLED [facility] [phone] AND SPOKE WITH MARSHALL AND SET UP A GURNEY TRANSPORT WITH O2 WITH ENGRAVER HAND SOFT METALS TIME 1530 AND PROVIDED [facility] AUTH#[id number]. MARLEN ASSIGNED NURSE INFORMED OF ENGRAVER HAND SOFT METALS TIME AND TRANSPORT.
--- NOTE | 2018-07-21 12:05 | NUR ---
PER TRADE SPECIALIST, PT ONLY TOOK 25% LUNCH, SHE DID NOT LIKE VEGIES AND MEAT ON THE TRAY, WILL OFFER OTHER ALTERNATIVE.
--- NOTE | 2018-07-21 13:45 | NUR ---
ZIA AT BEDSIDE, NOTIFIED OF PLAN TO DC BACK TO [facility].
[2018-07-21] MEDS ORDERED: LIDOCAINE OINTMENT 5% 35 GM TUBE TP PRN (15:00)
--- NOTE | 2018-07-21 15:30 | NUR ---
REPORT CALLED TO ASHWIN CANTU, ROOM 20, AWAITING [facility] ETA [phone]
--- NOTE | 2018-07-21 15:40 | NUR ---
IV DC'D, CATH TIP INTACT, BLEEDING CONTROLLED, PT CARLI WELL
--- NOTE | 2018-07-21 16:15 | NUR ---
[facility]SP[facility] TO BEDSIDE, REPORT GIVEN TO EMT, PT TAKEN TO [facility] IN [facility] VIA [facility].
[2018-07-22] MEDS ORDERED: LIDOCAINE 5% 1 EA PATCH TP SCH (09:00)
== END 2018-07-21 16:15 | DRG 871 ==
LOC: MED 21:32 → MTU 07-14 00:26
PROVIDERS: ADMIT General Practice; ATTEND General Practice
PROC: 0D7Q7ZZ Dilation of Anus, Via Natural or Artificial Opening (ICD-10-PCS; principal; 2018-07-20 17:30)
DX: A41.9 Sepsis, unspecified organism (principal); L89.154 Pressure ulcer of sacral region, stage 4; N17.0 Acute kidney failure with tubular necrosis; E43 Unspecified severe protein-calorie malnutrition; J69.0 Pneumonitis due to inhalation of food and vomit; G93.40 Encephalopathy, unspecified; N39.0 Urinary tract infection, site not specified; Q44.6 Cystic disease of liver; K56.49 Other impaction of intestine; I25.10 Atherosclerotic heart disease of native coronary artery without angina pectoris; E11.65 Type 2 diabetes mellitus with hyperglycemia; E83.42 Hypomagnesemia; F03.90 Unspecified dementia, unspecified severity, without behavioral disturbance, psychotic disturbance, mood disturbance, and anxiety; I50.9 Heart failure, unspecified; I11.0 Hypertensive heart disease with heart failure; M19.90 Unspecified osteoarthritis, unspecified site; F41.9 Anxiety disorder, unspecified; D35.01 Benign neoplasm of right adrenal gland; K76.89 Other specified diseases of liver; L89.159 Pressure ulcer of sacral region, unspecified stage; F79 Unspecified intellectual disabilities; Z22.322 Carrier or suspected carrier of Methicillin resistant Staphylococcus aureus; K59.00 Constipation, unspecified; E83.39 Other disorders of phosphorus metabolism; D64.9 Anemia, unspecified; Z86.718 Personal history of other venous thrombosis and embolism; Z74.01 Bed confinement status; E83.51 Hypocalcemia; J45.909 Unspecified asthma, uncomplicated; Z90.710 Acquired absence of both cervix and uterus; Z68.21 Body mass index [BMI] 21.0-21.9, adult
CPT/HCPCS: 36415; 51702; 71045; 74018; 80048; 80053; 81001; 82150; 82948; 83036; 83605; 83690; 83735; 83880; 84100; 84439; 84443; 84484; 85025; 85610; 85730; 87040; 87070; 87081; 87086; 87186; 87205; 92610; 92700; 93005; 94640; 96361; 96365; 96367; 99291; J1630; J1815; J1956; J2250; J2543; J3010; J3475; J7030; J7042; J7620; Q0092; Q9967

== ENCOUNTER 2018-08-14 20:15 | Inpatient (IN) | payer OTHER ==
[~2018-08-14] VITALS: Ht 182.9 cm; Wt 80.7 kg
[~2018-08-14 20:15] MED LIST: AMLO5TAB PO; ASPI81CT89 PO; ATI.5 PO; DOCU-299 PO; INSU100S53 SC; METF850T PO; MIRABULK PO; OLAN20TA1 PO; OXCA150T2 PO; SENN-89 PO; VAS10 PO
[2018-08-14 20:20] VITALS: BP 111/77
--- NOTE | 2018-08-14 20:20 | NUR ---
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 ARRIVED ON 6LPM NC, SATS 98%. PER EMS PT RECEIVED ALBUTEROL BREATHING TREATMENT X 1, IMPROVED SATS TO 96%. RHONCHI NOTED ON JORGITO UPPPER LOBES, DIMINISHED AT BASES. PMH: HTN. DM, ALZHEIMERS, COPD, CHF
--- NOTE | 2018-08-14 20:20 | NUR ---
PT ARRIVED WITH NORMAN CATHETER. REPLACED IN ED WITH 16 FR F/C CATHETER, PT CARLI WELL. Patient noted to have existing wounds upon arrival to ER. Photos taken of wound and placed in chart. Wound covered with dressing. Physician informed.
--- NOTE | 2018-08-14 20:39 | NUR ---
EKG PERFORMED AT BEDSIDE. PT COVERED IN GOWN DURING PROCEDURE. SINUS TACHYCARDIA
[2018-08-14] MEDS ORDERED: IPRATROPIUM 0.02% 0.5 MG/2.5 ML NEBU INH ONE (22:20)
[2018-08-14] MEDS ORDERED: methylPREDNISolone SS 125 MG/2 ML VIAL IVP ONE (22:20)
[2018-08-14] MEDS ORDERED: ALBUTEROL 0.083% 2.5 MG/3 ML NEBU INH ONE (22:20)
[2018-08-14 23:03] LABS: RED CELL DISTRIBUTION WIDTH 15.1 % (11.6-13.7)
[2018-08-14 23:07] LABS: HEMATOCRIT 35.8 % (36-48); HEMOGLOBIN 11.5 g/dL (12.0-16.0); MEAN CORPUSCULAR HEMOGLOBIN 28 pg (27-31); MEAN CORPUSCULAR HGB CONC 32 g/dL (33-37); MEAN CORPUSCULAR VOLUME 85.6 fL (80-94); PLATELET COUNT (AUTO) 370 K/uL (140-450); RED BLOOD CELL COUNT(AUTO) 4.18 MIL/uL (4.20-5.40); WHITE BLOOD COUNT (AUTO) 26.4 K/uL (4.8-10.8)
[2018-08-14 23:29] LABS: LYMPHOCYTES % (MANUAL) 2 % (20-46); MONOCYTES % (MANUAL) 4 % (5-12)
--- NOTE | 2018-08-14 23:30 | NUR ---
Patient appears to be resting comfortably in bed. Respirations even and unlabored, continues on 2LPMNC
[2018-08-14 23:32] LABS: ALBUMIN 2.6 g/dL (3.4-5.0); ANION GAP 12.3 (8-16); CARBON DIOXIDE 26.8 mmol/L (21-32); POTASSIUM 5.1 mmol/L (3.5-5.1); TOTAL BILIRUBIN 0.2 mg/dL (0.0-1.0)
[2018-08-14] MEDS ORDERED: PIPERACILLIN/TAZOBACTAM 3.375 GM in DEXTROSE 5% 50 ML IV ONE (23:45)
[2018-08-14] MEDS ORDERED: LEVOFLOXACIN 750 MG/D5W PREMIX 150 ML IV ONE (23:45)
[2018-08-14] MEDS ORDERED: NACL 0.9% 1,400 ML IV ONE (23:45)
[2018-08-14] MEDS ORDERED: CRAN450C PO (23:57)
[2018-08-14] MEDS ORDERED: [UNRECOGNIZED DRUG - CODE] PO (23:57)
[2018-08-14] MEDS ORDERED: PIPERACILLIN/TAZOBACTAM 3.375 GM VIAL IV ONE (23:58)
--- NOTE | 2018-08-15 01:32 | NUR ---
Patient appears to be resting comfortably in bed. Respirations even and unlabored, continues on 2LPM NC.
[2018-08-15] MEDS ORDERED: DOCUSATE SODIUM 100 MG GELCAP PO PRN ×2 (01:40→03:15)
[2018-08-15] MEDS ORDERED: ONDANSETRON 4 MG/2 ML VIAL IM/IVP PRN (01:40)
[2018-08-15] MEDS ORDERED: ACETAMINOPHEN 325 MG TAB PO PRN (01:40)
[2018-08-15] MEDS ORDERED: ALBUTEROL SULFATE/IPRATROPIU 3 ML SOL IH PRN (01:40)
[2018-08-15] MEDS ORDERED: DEXTROSE 50% 50 ML SYR IVP PRN (01:40)
[2018-08-15] MEDS ORDERED: LEVEMIR SUBQ (02:12)
[2018-08-15] MEDS ORDERED: LACT10CA PO (02:12)
[2018-08-15] MEDS ORDERED: MULT-1305 PO (02:12)
[2018-08-15] MEDS ORDERED: ZINC50TA PO (02:25)
[2018-08-15] MEDS ORDERED: SIME80CT70 PO (02:25)
[2018-08-15] MEDS ORDERED: OLAN7.5T1 PO ×2 (02:25)
[2018-08-15] MEDS ORDERED: ACET-2619 PO (02:25)
[2018-08-15] MEDS ORDERED: OXCA150T2 PO ×2 (02:25→03:48)
[2018-08-15] MEDS ORDERED: COLL30OI TP (02:25)
[2018-08-15] MEDS ORDERED: VAS5 PO (02:25)
--- NOTE | 2018-08-15 02:27 | NUR ---
Patient will be admitted to care of [facility]. Admited to TELE. Will go to room 115. Belongings list completed. Report to NICHOLE COUGHLIN.
[2018-08-15 02:30] VITALS: BP 99/52
--- NOTE | 2018-08-15 02:30 | NUR ---
ADMITTED A7F FROM ER . CAME BY CITLALLI . ASLEEP. BUT OPEN EYES WHEN WE MOVED FROM GURNEY TO BED. ER NURSE SAID PT ABLE TO SAY NAME WHEN IN THERE. HAS NORMAN CATHETER WITH CLOUDY URINE OUTPUT. DX: SEPSIS WITH ELEVATED LACTIC ACID. ON O22L/NC. NO SOB NOTED AT THIS TIME. O2 SAT99%. BP LOW 99/52 , HR-79,AFEBRILE AT 97.5. HAS HL ON THE LT AC#20. CLEAR AND PATENT. WITH OPEN WOUND ON THE SACRUM. HAS GENERALIZED WEAKNESS. REPOSITIONED PT FOR COMFORT. UNABLE TO GET MEDICAL INFORMATION DUE TO MENTAL STATUS. BED ON LOW POSITION. CALL LIGHT PLACED WITHIN EASY REACH. ON CONTACT ISOLATION DUE TO HX:MRSA NARES AND ESBL URINE. HIGH RISK FOR FALL PROTOCOL INITIATED . WILL NNED FREQUENT ROUNDS. WILL CONTINUE TO MONITOR.
[2018-08-15 02:41] LABS: PROTHROMBIN TIME 9.2 secs (10.8-13.4)
[2018-08-15] MEDS: NACL 0.9% 1,000 ML IV SCH ×2 (02:56→18:18)
--- NOTE | 2018-08-15 02:56 | NUR ---
PT UNABLE TO DO INCENTIVE SPIROMETER
[2018-08-15] MEDS ORDERED: LORazepam 0.5 MG TAB PO PRN (03:15)
[2018-08-15 03:34] LABS: MAGNESIUM 1.8 mg/dL (1.8-2.4); PHOSPHORUS 4.2 mg/dL (2.5-4.9); THYROID STIMULATING HORMONE 2.2 uIU/mL (0.34-3.74)
[2018-08-15] MEDS ORDERED: OLAN10TA1 PO (03:40)
[2018-08-15 04:01] LABS: APPEARANCE,URINE CLOUDY (CLEAR); BILIRUBIN,URINE NEGATIVE (NEGATIVE); BLOOD, URINE TRACE-I (NEGATIVE); COLOR,URINE YELLOW (YELLOW); LEUKOCYTE ESTERASE ,URINE 3+ (NEGATIVE); NITRITE, URINE POSITIVE (NEGATIVE); PH,URINE >=9.0 (5.0-9.0); UGLUCOSE NEGATIVE (NEGATIVE)
[2018-08-15 04:33] LABS: RBC,URINE 3-10 (FEW) /HPF (0-5); WBC,URINE 20-60 /HPF (0-5)
[2018-08-15 04:34] LABS: TRIPLE PHOSPHATE CRYSTAL,UR 0-1 /HPF (None Seen)
--- NOTE | 2018-08-15 05:10 | NUR ---
BP RECHECKED 89/[address] CHANEY MADE AWARE. SHE SAID TO RECHECKED WITH ANOTHER BP MACHINE. ON ANOTHER MACHINE CHECKED TWICE IT WAS 82/[address] MALHOTRA MADE AWARE AGAIN . WITH ORDER FOR NS 1L BOLUS. THEN RECHECKED AFTER .
[2018-08-15] MEDS ORDERED: NACL 0.9% 1,000 ML IV ONE (05:15)
[2018-08-15] MEDS ORDERED: PIPERACILLIN/TAZOBACTAM 3.375 GM in DEXTROSE 5% 50 ML IV SCH (06:00)
[2018-08-15] MEDS: BLOOD GLUCOSE MONITORING 1 DEV DEV FS SCH ×4 (06:11→21:13)
[2018-08-15] MEDS: INSULIN LISPRO SLIDING SCALE 100 UNITS/ML VIAL SUBQ PRN ×3 (06:13→16:44)
--- NOTE | 2018-08-15 06:13 | NUR ---
BLOOD SUGAR WAS CHECKED THIS AM. RESULT 292. INSULIN HUMALOG 8 UNITS SUB Q GIVEN COVERAGE.
[2018-08-15 06:14] LABS: ANION GAP 10.6 (8-16); CARBON DIOXIDE 26.7 mmol/L (21-32); CREATININE 0.8 mg/dL (0.6-1.3); MAGNESIUM 1.7 mg/dL (1.8-2.4); PHOSPHORUS 3.7 mg/dL (2.5-4.9); POTASSIUM 4.3 mmol/L (3.5-5.1)
--- NOTE | 2018-08-15 06:15 | NUR ---
CHECKED ON PT . BP IS NOW 132/65, HR-65 AND O2 SAT 100% ON 2L/NC.
[2018-08-15] MEDS ORDERED: PIPERACILLIN/TAZOBACTAM 3.375 GM VIAL IV ONE (06:25)
[2018-08-15] MEDS: ALBUTEROL SULFATE/IPRATROPIU 3 ML SOL IH SCH ×3 (06:31→19:02)
--- NOTE | 2018-08-15 06:31 | NUR ---
PT IS SLEEPING WITH NO SIGNS OF DISTRESS NOTED AT THIS TIME, NO HHN GIVEN TO PT.
--- NOTE | 2018-08-15 07:20 | NUR ---
ENDORSED PT IN STABLE CONDITION TO AM NURSE. FOR CONTINUITY OF CARE.
--- NOTE | 2018-08-15 07:28 | NUR ---
RECEIVED REPORT FROM BUTCHER ASSISTANT RN. ON CONTACT PRECAUTIONS, ASPIRATION PRECAUTIONS WITH HOB AT 30 DEGREES, STRICT I&O. SATURATING WELL ON 2L NC. PT SLEEPING IN BED, AROUSABLE BY VOICE. PT IS AO X1, LETHARGIC. FLACC 0. DOCTOR AWARE OF LOWERED BP. BP IS 85/55 NOW, 1L NS BOLUS IS CURRENTLY INFUSING. LUNGS SOUNDS DIMINISHED. PT IS BEDBOUND. OPEN WOUND ON SACRUM, DRESSING IS DRY AND INTACT. PENDING WOUND EVAL. IV SITE PATENT AND ASYMPTOMATIC. F/C IN PLACE, DRAINING URINE. ALL SAFETY PRECAUTIONS IN PLACE, WILL CONTINUE TO MONITOR.
[2018-08-15 07:52] LABS: HEMATOCRIT 33.2 % (36-48); HEMOGLOBIN 10.3 g/dL (12.0-16.0); MEAN CORPUSCULAR HEMOGLOBIN 27 pg (27-31); MEAN CORPUSCULAR HGB CONC 31 g/dL (33-37); MEAN CORPUSCULAR VOLUME 87.5 fL (80-94); PLATELET COUNT (AUTO) 328 K/uL (140-450); RED BLOOD CELL COUNT(AUTO) 3.79 MIL/uL (4.20-5.40); RED CELL DISTRIBUTION WIDTH 15.6 % (11.6-13.7)
[2018-08-15 08:00] VITALS: BP 85/55
[2018-08-15 08:05] LABS: BASOPHILS % (MANUAL) 0 % (0-2); EOSINOPHILS % (MANUAL) 0 % (0-4); LYMPHOCYTES % (MANUAL) 7 % (20-46); MONOCYTES % (MANUAL) 2 % (5-12)
--- NOTE | 2018-08-15 08:37 | NUR ---
BP IS NOW 110/64 AND HR 65. PT CONTINUES TO BE LETHARGIC, BUT AROUSABLE BY TOUCH. DID NOT EAT BREAKFAST. WILL CONTINUE TO MONITOR.
[2018-08-15] MEDS ORDERED: metFORMIN 850 MG TAB PO SCH (09:00)
[2018-08-15] MEDS ORDERED: OLANZAPINE 10 MG PO SCH (09:00)
[2018-08-15] MEDS ORDERED: WHEY PROTEIN ISOLATE PO SCH (09:00)
[2018-08-15] MEDS ORDERED: MULTIVITAMIN WITH MINERALS PO SCH (09:00)
[2018-08-15] MEDS: POLYETHYLENE GLYCOL 17 GM/PKT PO SCH (10:21)
[2018-08-15] MEDS: MULTIVITAMIN/MINERALS 1 TAB PO SCH (10:22)
[2018-08-15] MEDS: SIMETHICONE 80 MG TAB.CHEW PO SCH ×3 (10:22→17:12)
[2018-08-15] MEDS: SENNA 8.6 MG TAB PO SCH ×3 (10:22→17:12)
[2018-08-15] MEDS: OXcarbazepine 150 MG TAB PO SCH (10:23)
[2018-08-15] MEDS: LACTOBACILLUS RHAMNOSUS GG 1 EACH CAP PO SCH (10:23)
[2018-08-15] MEDS: OLANZapine 5 MG TAB PO SCH (10:23)
[2018-08-15] MEDS: ENALAPRIL 10 MG TAB PO SCH ×2 (10:24→21:14)
[2018-08-15] MEDS: ASPIRIN 81 MG TAB.CHEW PO SCH (10:24)
[2018-08-15] MEDS: amLODIPine 5 MG TAB PO SCH (10:25)
[2018-08-15] MEDS: PIPER/TAZO 3.375GM/D5W PREMIX 50 ML IV SCH ×3 (11:16→23:20)
--- NOTE | 2018-08-15 11:18 | NUR ---
PATIENT ABLE TO HELP WITH TURNING IN BED. REACHES TOWARDS THE BED RAIL AND HOLD WHILE TURNING. ABLE TO SWALLOW PILLS CRUSHED IN APPLE SAUCE WITHOUT PROBLEMS. STILL CONFUSED AND NOT VERY VOCAL. WILL CONTINUE TO MONITOR.
--- NOTE | 2018-08-15 11:34 | NUR ---
ABG DRAWN ON RB ON ROOMAIR WITHOUT INCIDENT AND RESULTS GIVEN TO WITH NO CHANGES MADE TO PT
[2018-08-15 12:00] VITALS: BP 121/60
[2018-08-15] MEDS ORDERED: MAG SULF 2000 MG/WATER PREMIX 50 ML IV ONE (12:35)
--- NOTE | 2018-08-15 13:00 | NUR ---
pt is sleeping with no signs of distress noted at this time no hhn given
[2018-08-15] MEDS: MAGNESIUM SULFATE 1GM in DEXTROSE 5% 100 ML PREMIX IV SCH ×2 (13:44→15:40)
--- NOTE | 2018-08-15 13:44 | NUR ---
FIRST BAG OF MAG SULFATE ADMINISTERED. WILL CONTINUE TO MONITOR.
--- NOTE | 2018-08-15 14:47 | NUR ---
CALLED RADIOLOGY REGARDING CT CHEST ANGIO BUT NO ANSWER. WILL CONTINUE TO TRY TO CONTACT THEM. Addendum: 08/15/18 at 1450 by Amy Truong Meng, RN CALLED [facility]. WAS ABLE TO REACH RADIOLOGY. THE NEXT SHIFT TECH TO CONTACT ME REGARDING TIME OF CT CHEST ANGIO.
--- NOTE | 2018-08-15 15:48 | NUR ---
ADMINISTERED SECOND BAG OF MAG SULFATE IVP. PT AWAKE WITH EYES OPEN SPONTANEOUSLY BUT NOT RESPONSIVE TO QUESTIONING. PT IS NOT VERBALIZING AT THIS TIME.
[2018-08-15 16:00] VITALS: BP 108/53
--- NOTE | 2018-08-15 16:24 | NUR ---
CALLED CT/RADIOLOGY BUT NO ANSWER. WILL CALL AGAIN LATER.
--- NOTE | 2018-08-15 17:19 | NUR ---
SCHEDULED IV ABX AND MEDS ADMINISTERED. PT IS AWAKE. TAKES ORAL PILLS CRUSHED IN APPLE SAUCE WITHOUT PROBLEMS.
--- NOTE | 2018-08-15 17:28 | NUR ---
RADIOLOGY SAID THEY ARE BUSY WITH CASES IN ED. NO ESTIMATE TIME FOR PICKING UP PATIENT. THEY WILL CALL WHEN READY. PT WILL BE KEPT NPO FOR DINNER. WILL ENDORSE TO ASSISTANT BOILER OPERATOR IF NECESSARY.
--- NOTE | 2018-08-15 19:15 | NUR ---
REPORT GIVEN TO 911 EMERGENCY DISPATCHER RN AT BEDSIDE. PT IN STABLE CONDITION.
--- NOTE | 2018-08-15 19:16 | NUR ---
REPORT RECEIVED FROM AM NURSE AT BEDSIDE. PT IN STABLE CONDITION. AAOX1. INTRODUCED SELF TO PT. BOARD UPDATED. IV SITE L AC 20G RUNNING NS @60ML/HR PATENT AND INTACT. SKIN WARM, DRY, AND NOT INTACT DUE TO PRESSURE ULCER OF THE SACRUM. WOUND CONSULT PENDING. PT IS ON ASPIRATION PRECAUTION. STRICT I&O'S. 3L VIA NC. NORMAN CATHETER IN PLACE. SPUTUM CULTURE PENDING. CT CHEST ANGIO W/WO CONTRAST PENDING. BED LOCKED IN LOW POSITION. CALL RENTERIA WITHIN REACH. SAFETY MEASURES IN PLACE. WILL CONTINUE TO MONITOR.
[2018-08-15] MEDS: OLANZapine 2.5 MG TAB PO SCH (21:15)
--- NOTE | 2018-08-15 21:15 | NUR ---
VASOTEC AND ZYPREXA CRUSHED AND PUT INTO APPLE GIVEN PO. HEPARIN GIVEN SUBQ. LANTUS 12 UNITS GIVEN SUBQ L UPPER ARM. PT TOLERATED WELL. Addendum: 08/15/18 at 2329 by Jose Escoto RN BS 93. NO INSULIN COVERAGE NEEDED.
[2018-08-15] MEDS: INSULIN LANTUS 100 UNITS/ML 10 ML VIAL SUBQ SCH (21:18)
--- NOTE | 2018-08-15 22:25 | NUR ---
CALLED CT TO ASK WHEN THEY WILL KNIFE GRINDER PT. CT SAID THEY ARE BUSY IN ER. WILL COME WHEN THEY ARE FREE AND CHECK THE IV SITE.
[2018-08-15 22:29] VITALS: BP 116/53
--- NOTE | 2018-08-15 23:20 | NUR ---
KARINA HUNG AND RUNNING. PT TOLERATED WELL.
[2018-08-16] VITALS: BP 114/68
--- NOTE | 2018-08-16 01:45 | NUR ---
PT TO CT FOR CT OF THE HEAD. CT CHEST ANGIO W/WO CONTRAST UNABLE TO BE DONE. WRONG CONSENT WAS SIGNED. WILL ATTEMPT TO GET CONSENT SIGNED BY FAMILY OR ENDORSE IT TO MORNING SHIFT.
--- NOTE | 2018-08-16 02:15 | NUR ---
RETURNED FROM CT WITH PT.
--- NOTE | 2018-08-16 02:30 | NUR ---
LINEN CHANGED. WOUND CARE DONE. PT TOLERATED WELL.
--- NOTE | 2018-08-16 02:50 | NUR ---
PATIENT WANTED OFF BIPAP AND PLACED ON NASAL CANNULA 2LPM BY MADYSON ESPITIA. NO DISTRESS NOTED SAO2-98% RR-18 HR-95BPM Addendum: 08/16/18 at 0524 by Dru Bennett RT DISREGARD NOTE, DOCUMENT ON WRONG PATIENT
[2018-08-16] MEDS: NACL 0.9% 1,000 ML IV SCH (03:36)
[2018-08-16 04:00] VITALS: BP 122/57
[2018-08-16] MEDS: PIPER/TAZO 3.375GM/D5W PREMIX 50 ML IV SCH ×4 (05:03→23:36)
--- NOTE | 2018-08-16 05:03 | NUR ---
KARINA HUNG AND RUNNING. PT TOLERATING WELL.
[2018-08-16] MEDS: BLOOD GLUCOSE MONITORING 1 DEV DEV FS SCH ×4 (06:24→20:00)
--- NOTE | 2018-08-16 06:28 | NUR ---
BS 71. NO INSULIN COVERAGE NEEDED.
[2018-08-16] MEDS: ALBUTEROL SULFATE/IPRATROPIU 3 ML SOL IH SCH ×3 (06:54→19:24)
--- NOTE | 2018-08-16 07:15 | NUR ---
REPORT GIVEN TO AM NURSE AT BEDSIDE. PT IN STABLE CONDITION.
--- NOTE | 2018-08-16 07:20 | NUR ---
RECEIVED REPORT FROM CORSETS SALESPERSON NURSE. PT IS RESTING IN BED, SEMI FOWLERS POSITION, PT IS AAOX2, BEDBOUND, ON ROOM AIR, IV IS ON THE LEFT AC, PATENT, INTACT, FLUSHING WELL, PT HAS SACRAL PRESSURE ULCER, NORMAN CATHETER IS IN PLACE, NO S/S OF RESPIRATORY DISTRESS OR DISCOMFORT NOTED AT THIS TIME, DISCUSSED PLAN OF CARE WITH PT, PT VERBALIZED UNDERSTANDING, SAFETY/FALL PRECAUTIONS ARE IN PLACE, CALL LIGHT IS WITHIN REACH, WILL CONTINUE TO MONITOR.
[2018-08-16 07:40] LABS: BASOPHILS % (AUTO) 0.3 % (0.0-2.0); EOSINOPHILS # (AUTO) 0.1 K/uL (0-0.4); EOSINOPHILS % (AUTO) 0.7 % (0.0-4.0); HEMATOCRIT 29.4 % (36-48); HEMOGLOBIN 9.6 g/dL (12.0-16.0); LYMPHOCYTES # (AUTO) 1.3 K/uL (2.5-16.5); LYMPHOCYTES % (AUTO) 12.2 % (20.5-51.1); MEAN CORPUSCULAR HEMOGLOBIN 28 pg (27-31); MEAN CORPUSCULAR HGB CONC 33 g/dL (33-37); MEAN CORPUSCULAR VOLUME 85.9 fL (80-94); MONOCYTES # (AUTO) 0.8 K/uL (0.8-1.0); MONOCYTES % (AUTO) 7.2 % (1.7-9.3); NEUTROPHILS # (AUTO) 8.6 K/uL (1.8-7.7); NEUTROPHILS % (AUTO) 79.6 % (42.2-75.2); PLATELET COUNT (AUTO) 287 K/uL (140-450); RED BLOOD CELL COUNT(AUTO) 3.42 MIL/uL (4.20-5.40); RED CELL DISTRIBUTION WIDTH 15.3 % (11.6-13.7); WHITE BLOOD COUNT (AUTO) 10.8 K/uL (4.8-10.8)
[2018-08-16 07:56] LABS: MAGNESIUM 1.9 mg/dL (1.8-2.4); PHOSPHORUS 2.2 mg/dL (2.5-4.9)
[2018-08-16 07:58] LABS: ANION GAP 6.6 (8-16); CARBON DIOXIDE 31.9 mmol/L (21-32); CREATININE 0.4 mg/dL (0.6-1.3); POTASSIUM 3.5 mmol/L (3.5-5.1)
[2018-08-16 08:00] VITALS: BP 143/64
[2018-08-16] MEDS: LACTOBACILLUS RHAMNOSUS GG 1 EACH CAP PO SCH (08:54)
[2018-08-16] MEDS: OXcarbazepine 150 MG TAB PO SCH (08:54)
[2018-08-16] MEDS: OLANZapine 5 MG TAB PO SCH (08:55)
[2018-08-16] MEDS: ENALAPRIL 10 MG TAB PO SCH ×2 (08:55→21:54)
[2018-08-16] MEDS: SENNA 8.6 MG TAB PO SCH ×3 (08:55→17:14)
--- NOTE | 2018-08-16 08:55 | NUR ---
DUE MEDICATIONS GIVEN, PT TOLERATED WELL. NO S/S OF DISTRESS NOTED, WILL CONTINUE TO MONITOR.
[2018-08-16] MEDS: SIMETHICONE 80 MG TAB.CHEW PO SCH ×3 (08:56→17:14)
[2018-08-16] MEDS: ASPIRIN 81 MG TAB.CHEW PO SCH (08:56)
[2018-08-16] MEDS: MULTIVITAMIN/MINERALS 1 TAB PO SCH (08:56)
[2018-08-16] MEDS: amLODIPine 5 MG TAB PO SCH (08:56)
[2018-08-16] MEDS: POLYETHYLENE GLYCOL 17 GM/PKT PO SCH (09:03)
--- NOTE | 2018-08-16 09:11 | NUR ---
PATIENT HAS BEEN SCREENED AND CATEGORIZED HIGH NUTRITION RISK. PATIENT WILL BE SEEN WITHIN 1-2 DAYS OF ADMISSION. 08/16/[address]
--- NOTE | 2018-08-16 11:02 | NUR ---
REASON FOR EVALUATION: SACROCOCCYX ULCER COMPLETE SKIN ASSESSMENT DONE WITH PRIMARY RN ON THIS 68 Y/O FEMALE PATIENT FROM [facility] TO [facility], WITH INITIAL DX OF HSOB. PAST MEDICAL HISTORY INCLUDE CHF, DIABETES, HYPERTENSION, CAD AND DEMENTIA. ABOVE INFORMATION OBTAINED FROM THE ADMISSION H&P. PT. ADMITTED WITH PRESSURE INJURY STAGE 4 ON SACRAL COCCYX. LABS ARE WBC 10.8, H/H 9.6/29.4, GLUCOSE 68 AND ALBUMIN 2.6. PATIENT IS NON-VERBAL. SKIN WARM TO TOUCH. NO HAIR GROWTH BLE AND BILATERAL PEDAL PULSES PRESENT. NORMAN CATHETER PATENT AND CLEAR YELLOW URINE OUTPUT. OBSERVED PT. NEEDS MAX. ASSISTANCE IN TURNING. PLAN OF CARE DISCUSSED WITH PRIMARY RN. INTEGUMENTARY: -SACROCOCCYX PRESSURE ULCER STAGE 4 WITH 1.5X1.5X0.5CM, WOUND BED 90% GRANULATING TISSUE, MOIST, NO ODOR, WOUND EDGE BETWEEN 6 TO 8 OCLOCK LOCATION BROWNISH COLOR. WOUND EDGE FLAT AND OLIVIA-WOUND SKIN INTACT. -BILATERAL LEGS DRY SCALY SKIN RECOMMENDATIONS: - CLEAN SACROCOCCYX PRESSURE ULCER WITH NS, PAT DRY, PACK WITH THERAHONEY DRESSING SHEET TO WOUND BED AND COVER WITH DRY DRESSING QD AND PRN IF SOILING -TURN AND REPOSITION PATIENT Q2H TO LEFT AND RIGHT SIDE ONLY TO OFFLOAD SACROCOCCYX -ASSESS AND MONITOR SKIN CONDITION DURING POSITION CHANGE, PLEASE PAY ATTENTION TO SACROCOCCYX -OFFLOAD BILATERAL HEELS BY PLACING PILLOWS UNDER CALVES AT ALL TIMES, UNLESS OTHERWISE CONTRAINDICATED -PRESSURE REDISTRIBUTION SURFACE THERAPY -KEEP SKIN CLEAN AND DRY AT ALL TIMES. RECOMMENDATIONS DISCUSSED WITH PRIMARY RN WILL FOLLOW UP PATIENT Q 7 -10 DAYS AND PRN. PLEASE CONTACT WOUND CARE NURSE FOR ANY CONCERNS AND CHANGES IN WOUND CONDITION
[2018-08-16 12:00] VITALS: BP 126/62
[2018-08-16] MEDS ORDERED: NACL 0.9% IRR 250 ML BOTTLE IR PRN (12:35)
[2018-08-16] MEDS: SODIUM PHOS / POTASSIUM PHOS 1 PKT PDR PO SCH ×2 (13:15→17:14)
--- NOTE | 2018-08-16 13:15 | NUR ---
PT IS SLEEPING IN BED BUT EASILY AWAKEN, DUE MEDICATIONS GIVEN, PT TOLERATED WELL, ALL NEEDS MET AT THIS TIME, CALL LIGHT IS WITHIN REACH, WILL CONTINUE TO MONITOR.
--- NOTE | 2018-08-16 13:23 | NUR ---
PT SLEEPING WITH NO SIGNS OF DISTRESS NOTED AT THIS TIME, NO HHN GIVEN TO PT
[2018-08-16] MEDS: DRY DRESSING TP SCH (13:42)
[2018-08-16] MEDS: THERAHONEY GEL 42.5 GM TP SCH (13:42)
--- NOTE | 2018-08-16 14:42 | NUR ---
PT'S NIECE (ANILA) IS AT PATIENT'S BEDSIDE, SPEAKING WITH DR. BECKHAM.
--- NOTE | 2018-08-16 15:46 | NUR ---
08/16/18 RD INITIAL ASSESSMENT COMPLETED PLEASE REFER TO NUTRITION ASSESSMENT UNDER CARE ACTIVITY FOR ESTIMATED NUTRITIONAL NEEDS. 1. CONTINUE CCHO 60, PURE DIET DIET TOLERATED 2. RECOMMEND CARDIAC DIET. 3.RECOMMEND NEPRO BID. 4. RD TO FOLLOW-UP 3-5 DAYS, MODERATE RISK SUSAN LOWRY, RD
[2018-08-16 16:00] VITALS: BP 123/51
--- NOTE | 2018-08-16 19:10 | NUR ---
ENDORSED PT TO WEIGHER AND GRADER NURSE FOR CONTINUITY OF CARE. PT STABLE AT THIS TIME.
--- NOTE | 2018-08-16 19:15 | NUR ---
RECEIVED PT AWAKE ON BED, AAOX2, CONFUSED BUT ABLE TO FOLLOW COMMANDS, VERBALLY RESPONSIVE, VITAL SIGNS STABLE, NO SIGNS OF PAIN OR SOB, IVF INFUSING WELL, SAFETY MEASURES IN PLACE WITH SIDE RAILS UP AND BED ALARM ON, MAINTAIN ON CONTACT ISOLATION, CALL LIGHT WITHIN REACH.
[2018-08-16 20:00] VITALS: BP 113/58
[2018-08-16] MEDS: OLANZapine 2.5 MG TAB PO SCH (21:54)
[2018-08-16] MEDS: INSULIN LANTUS 100 UNITS/ML 10 ML VIAL SUBQ SCH (21:55)
--- NOTE | 2018-08-16 21:55 | NUR ---
BLOOD SUGAR CHECKED WITH 181 RESULT, COVERAGE GIVEN, DUE PO MEDS CRUSHED AND GIVEN WITH APPLE SAUCE, PUDDING ALSO GIVEN FOR SNACK, TOLERATED WELL, ALL NEEDS ATTENDED.
[2018-08-16] MEDS: INSULIN LISPRO SLIDING SCALE 100 UNITS/ML VIAL SUBQ PRN (22:02)
[2018-08-17] VITALS: BP 115/66
--- NOTE | 2018-08-17 | NUR ---
PT SLEEPING, AROUSABLE TO TOUCH, VITAL SIGNS STABLE, ZOSYN IVPB INFUSING WELL, REPOSITIONED Q2H AND OFFLOAD PRESSURE AREAS, CONTINUE TO MONITOR CLOSELY.
[2018-08-17 04:00] VITALS: BP 124/63
--- NOTE | 2018-08-17 04:10 | NUR ---
PT ASLEEP, EASILY AROUSABLE, VITAL SIGNS STABLE, PT ASKING FOR COFFEE, REORIENT TO TIME AND PLACE, VERBALIZED UNDERSTANDING, PT WENT BACK TO SLEEP, BED ALARM ON, MONITORED CLOSELY.
[2018-08-17] MEDS: PIPER/TAZO 3.375GM/D5W PREMIX 50 ML IV SCH ×4 (05:13→23:47)
[2018-08-17] MEDS: ALBUTEROL SULFATE/IPRATROPIU 3 ML SOL IH SCH ×3 (06:56→18:54)
--- NOTE | 2018-08-17 06:56 | NUR ---
PT SLEEPING WITH NO SIGNS OF DISTRESS NOTED AT THIS TIME NO HHN GIVEN TO PT
[2018-08-17] MEDS: BLOOD GLUCOSE MONITORING 1 DEV DEV FS SCH ×4 (06:58→20:40)
--- NOTE | 2018-08-17 07:18 | NUR ---
PT SLEEPING, NO SIGNS OF DISTRESS, REPORT GIVEN TO MADYSON BRO FOR CONTINUITY OF CARE.
--- NOTE | 2018-08-17 07:19 | NUR ---
RECEIVED REPORT FROM ORACLE HRMS DEVELOPER NURSE, PT IS AWAKE, AAOX1, RESTING IN BED, SEMI FOWLERS POSITION, PT IS ON O2 2L NC, PT HAS IV ON LEFT AC, PATENT, INTACT, FLUSHING WELL, PT HAS SACRAL PRESSURE ULCER,NO S/S OF RESPIRATORY DISTRESS OR DISCOMFORT NOTED, SAFETY/FALL PRECAUTIONS ARE IN PLACE, CALL LIGHT IS WITHIN REACH WILL CONTINUE TO MONITOR.
[2018-08-17 08:00] VITALS: BP 125/56
[2018-08-17 08:58] LABS: BASOPHILS % (AUTO) 0.5 % (0.0-2.0); EOSINOPHILS # (AUTO) 0.2 K/uL (0-0.4); EOSINOPHILS % (AUTO) 2.5 % (0.0-4.0); HEMATOCRIT 29.2 % (36-48); HEMOGLOBIN 9.6 g/dL (12.0-16.0); LYMPHOCYTES # (AUTO) 1.6 K/uL (2.5-16.5); LYMPHOCYTES % (AUTO) 19.1 % (20.5-51.1); MEAN CORPUSCULAR HEMOGLOBIN 28 pg (27-31); MEAN CORPUSCULAR HGB CONC 33 g/dL (33-37); MEAN CORPUSCULAR VOLUME 85.3 fL (80-94); MONOCYTES # (AUTO) 0.7 K/uL (0.8-1.0); MONOCYTES % (AUTO) 8.4 % (1.7-9.3); NEUTROPHILS # (AUTO) 5.9 K/uL (1.8-7.7); NEUTROPHILS % (AUTO) 69.5 % (42.2-75.2); PLATELET COUNT (AUTO) 292 K/uL (140-450); RED BLOOD CELL COUNT(AUTO) 3.42 MIL/uL (4.20-5.40); WHITE BLOOD COUNT (AUTO) 8.5 K/uL (4.8-10.8)
[2018-08-17 09:23] LABS: CREATININE 0.5 mg/dL (0.6-1.3)
[2018-08-17] MEDS: NACL 0.9% IRR 250 ML BOTTLE IR SCH (09:31)
[2018-08-17 09:33] LABS: MAGNESIUM 1.9 mg/dL (1.8-2.4); PHOSPHORUS 3.4 mg/dL (2.5-4.9)
[2018-08-17] MEDS: OLANZapine 5 MG TAB PO SCH (09:33)
[2018-08-17] MEDS: LACTOBACILLUS RHAMNOSUS GG 1 EACH CAP PO SCH (09:33)
[2018-08-17] MEDS: SENNA 8.6 MG TAB PO SCH ×3 (09:33→17:24)
[2018-08-17] MEDS: OXcarbazepine 150 MG TAB PO SCH (09:33)
[2018-08-17] MEDS: ASPIRIN 81 MG TAB.CHEW PO SCH (09:33)
[2018-08-17] MEDS: POLYETHYLENE GLYCOL 17 GM/PKT PO SCH (09:33)
[2018-08-17] MEDS: MULTIVITAMIN/MINERALS 1 TAB PO SCH (09:33)
[2018-08-17] MEDS: amLODIPine 5 MG TAB PO SCH (09:34)
[2018-08-17] MEDS: ENALAPRIL 10 MG TAB PO SCH ×2 (09:34→20:27)
[2018-08-17] MEDS: SODIUM PHOS / POTASSIUM PHOS 1 PKT PDR PO SCH (09:34)
[2018-08-17] MEDS: SIMETHICONE 80 MG TAB.CHEW PO SCH ×3 (09:34→17:23)
[2018-08-17 09:44] LABS: POTASSIUM 4.1 mmol/L (3.5-5.1)
--- NOTE | 2018-08-17 09:47 | NUR ---
DUE MEDICATION GIVEN, PT TOLERATED WELL. PT WOUND WAS CLEANED AND DRESSING CHANGED WITH THERAHONEY APPLIED. PT TURNED FOR COMFORT. ALL NEEDS ARE MET AT THIS TIME. CALL LIGHT IS WITHIN REACH.
[2018-08-17 09:49] LABS: ANION GAP 5.8 (8-16); CARBON DIOXIDE 32.3 mmol/L (21-32)
[2018-08-17] MEDS: NACL 0.9% 1,000 ML IV SCH (10:58)
--- NOTE | 2018-08-17 11:15 | NUR ---
NOTICED PATIENT'S IV SITE ON RIGHT AC IS LEAKING. IV REMOVED CATHETER TIP INTACT. WILL INSERT A NEW IV.
--- NOTE | 2018-08-17 11:30 | NUR ---
NEW IV INSERTED ON RIGHT WRIST, #22. PT TOLERATED WELL. WILL MONITOR.
[2018-08-17 12:00] VITALS: BP 126/70
[2018-08-17] MEDS: INSULIN LISPRO SLIDING SCALE 100 UNITS/ML VIAL SUBQ PRN ×2 (12:54→20:40)
--- NOTE | 2018-08-17 13:21 | NUR ---
MED WAS GIVEN PER ORDER. PRIMARY NURSE DIEUDONNE WAS INFORMED
--- NOTE | 2018-08-17 13:21 | NUR ---
PT SLEEPING WITH NO SIGNS OF DISTRESS NOTED AT THIS TIME, NO HHN GIVEN TO PT
--- NOTE | 2018-08-17 13:30 | NUR ---
PT IS DROWSY AT THIS TIME, PT REFUSED TO TAKE HER SCHEDULE MEDICATIONS.
[2018-08-17] MEDS: DRY DRESSING TP SCH (13:32)
[2018-08-17] MEDS: THERAHONEY GEL 42.5 GM TP SCH (13:33)
[2018-08-17 16:00] VITALS: BP 130/67
--- NOTE | 2018-08-17 16:00 | NUR ---
PT IS AWAKE, RESTING IN BED, NO S/S OF RESPIRATORY DISTRESS OR DISCOMFORT NOTED, CALL LIGHT IS WITHIN REACH.
--- NOTE | 2018-08-17 16:44 | NUR ---
Scissors Grinder Note: I faxed patient's medical information to [facility].
--- NOTE | 2018-08-17 19:24 | NUR ---
ENDORSED PT TO TRUCK SWITCHER NURSE FOR CONTINUITY OF CARE. PT STABLE AT THIS TIME.
--- NOTE | 2018-08-17 19:25 | NUR ---
RECEIVED PT AWAKE ON BED, AAOX2, CONFUSED BUT ABLE TO FOLLOW COMMANDS, VERBALLY RESPONSIVE, VITAL SIGNS STABLE, NO SIGNS OF PAIN OR SOB, ON O2 AT 2L/NC, IVF INFUSING WELL, SAFETY MEASURES IN PLACE WITH SIDE RAILS UP AND BED ALARM ON, MAINTAIN ON CONTACT ISOLATION, WILL REPOSITION Q2H AND OFFLOAD PRESSURE AREAS, CALL LIGHT WITHIN REACH.
[2018-08-17 20:00] VITALS: BP 115/58
[2018-08-17] MEDS: OLANZapine 2.5 MG TAB PO SCH (20:27)
--- NOTE | 2018-08-17 20:30 | NUR ---
BLOOD SUGAR CHECKED WITH 194 RESULT, COVERAGE GIVEN, DUE MEDS ADMINISTERED, PO MEDS CRUSHED AND GIVEN WITH APPLE SAUCE, VANILLA PUDDING GIVEN FOR SNACK, TOLERATED WELL, MEDICATED WITH COLACE AND PRUNE JUICE X2 GIVEN FOR CONSTIPATION, ALL NEEDS ATTENDED.
[2018-08-17] MEDS: INSULIN LANTUS 100 UNITS/ML 10 ML VIAL SUBQ SCH (20:41)
[2018-08-18] VITALS (7 sets, daily range): BP systolic 111–151; BP diastolic 58–75
--- NOTE | 2018-08-18 | NUR ---
PT SLEEPING, AROUSABLE BUT SLEEPY, VITAL SIGNS STABLE, SB ON TELE, ASYMPTOMATIC, NO DISTRESS NOTED, ZOSYN IVPB INFUSING WELL, REPOSITIONED AND OFFLOAD PRESSURE AREAS, CONTINUE TO MONITOR CLOSELY.
[2018-08-18] MEDS ORDERED: BISACODYL 10 MG SUPP RC PRN (04:40)
[2018-08-18] MEDS ORDERED: SODIUM PHOSPHATE 118 ML ENEM RC SCH (05:00)
--- NOTE | 2018-08-18 05:00 | NUR ---
NO BM FOR SEVERAL DAYS, DR TEE MADE AWARE, FLEET ENEMA GIVEN ORDERED, TOLERATED WELL, WILL REASSESS PT.
[2018-08-18] MEDS: PIPER/TAZO 3.375GM/D5W PREMIX 50 ML IV SCH ×4 (05:22→23:17)
--- NOTE | 2018-08-18 05:31 | NUR ---
PT HAS MODERATE LOOSE BROWNISH STOOL, NO SOLID PIECES NOTED, DULCOLAX SUPPOSITORY ADMINISTERED, WILL REASSESS PT, BLOOD SUGAR CHECKED WITH 116 RESULT, MONITORED CLOSELY.
--- NOTE | 2018-08-18 06:03 | NUR ---
PT HAD MODERATE LOOSE STOOL, NO SOLID PIECES NOTED, PERINEAL CARE DONE, DR TEE MADE AWARE, SACRAL WOUND DRESSING CHANGED, REPOSITIONED AND OFFLOAD PRESSURE AREAS, MONITORED CLOSELY.
[2018-08-18] MEDS: BLOOD GLUCOSE MONITORING 1 DEV DEV FS SCH ×4 (06:35→20:40)
--- NOTE | 2018-08-18 07:18 | NUR ---
PT AWAKE, NO SIGNS OF DISTRESS, REPORT GIVEN TO RN ROSEMARY FOR CONTINUITY OF CARE.
--- NOTE | 2018-08-18 07:19 | NUR ---
RECEIVED PT AWAKE ON BED, AAOX2, CONFUSED BUT ABLE TO FOLLOW COMMANDS, VERBALLY RESPONSIVE, VITAL SIGNS STABLE, NO SIGNS OF PAIN OR SOB, ON O2 AT 2L/NC, IVF INFUSING WELL. IV SITE PATENT, ASYMPTOMATIC AND INTACT. UPDATED BOARD. SAFETY AND ISOLATION PRECAUTIONS IN PLACE WITH SIDE RAILS UP AND BED ALARM ON, WILL REPOSITION Q2H AND OFFLOAD PRESSURE AREAS, CALL LIGHT WITHIN REACH, WILL CONTINUE TO MONITOR PATIENT.
[2018-08-18] MEDS: ALBUTEROL SULFATE/IPRATROPIU 3 ML SOL IH SCH ×3 (07:25→19:10)
[2018-08-18 07:40] LABS: BASOPHILS # (AUTO) 0.1 K/uL (0.00-0.22); BASOPHILS % (AUTO) 0.6 % (0.0-2.0); EOSINOPHILS # (AUTO) 0.4 K/uL (0-0.4); EOSINOPHILS % (AUTO) 4.7 % (0.0-4.0); HEMATOCRIT 32.9 % (36-48); HEMOGLOBIN 10.6 g/dL (12.0-16.0); LYMPHOCYTES # (AUTO) 1.4 K/uL (2.5-16.5); LYMPHOCYTES % (AUTO) 15.3 % (20.5-51.1); MEAN CORPUSCULAR HEMOGLOBIN 28 pg (27-31); MEAN CORPUSCULAR HGB CONC 32 g/dL (33-37); MEAN CORPUSCULAR VOLUME 85.6 fL (80-94); MONOCYTES # (AUTO) 0.5 K/uL (0.8-1.0); MONOCYTES % (AUTO) 5.6 % (1.7-9.3); NEUTROPHILS # (AUTO) 6.7 K/uL (1.8-7.7); NEUTROPHILS % (AUTO) 73.8 % (42.2-75.2); PLATELET COUNT (AUTO) 348 K/uL (140-450); RED BLOOD CELL COUNT(AUTO) 3.85 MIL/uL (4.20-5.40); RED CELL DISTRIBUTION WIDTH 14.9 % (11.6-13.7); WHITE BLOOD COUNT (AUTO) 9.1 K/uL (4.8-10.8)
[2018-08-18 07:55] LABS: ANION GAP 4.3 (8-16); CARBON DIOXIDE 33.9 mmol/L (21-32); CREATININE 0.4 mg/dL (0.6-1.3); POTASSIUM 4.2 mmol/L (3.5-5.1)
--- NOTE | 2018-08-18 08:05 | NUR ---
ASPIRATIONS PRECAUTION IN PLACE. PER HYDROLOGY TEACHER'S REPORT, PATIENT HAD A LOOSE STOOL BM. PATIENT CLEANED AND CHANGED, AND REPOSITIONED FOR COMFORT AND TO OFFLOAD PRESSURE ULCERS. PATIENT CURRENTLY SITTING UP IN BED BEING FED BREAKFAST BY HYDROLOGY TEACHER. SAFETY AND ISOLATION IN PLACE, CALL LIGHT IN PLACE, WILL CONTINUE TO MONITOR PATIENT.
[2018-08-18] MEDS: POLYETHYLENE GLYCOL 17 GM/PKT PO SCH (09:35)
[2018-08-18] MEDS: LACTOBACILLUS RHAMNOSUS GG 1 EACH CAP PO SCH (09:37)
[2018-08-18] MEDS: OXcarbazepine 150 MG TAB PO SCH (09:38)
[2018-08-18] MEDS: OLANZapine 5 MG TAB PO SCH (09:39)
[2018-08-18] MEDS: MULTIVITAMIN/MINERALS 1 TAB PO SCH (09:39)
[2018-08-18] MEDS: SIMETHICONE 80 MG TAB.CHEW PO SCH ×3 (09:39→17:51)
[2018-08-18] MEDS: NACL 0.9% IRR 250 ML BOTTLE IR SCH (09:40)
[2018-08-18] MEDS: ENALAPRIL 10 MG TAB PO SCH ×2 (09:40→20:53)
[2018-08-18] MEDS: ASPIRIN 81 MG TAB.CHEW PO SCH (09:41)
[2018-08-18] MEDS: SENNA 8.6 MG TAB PO SCH ×3 (09:41→17:51)
[2018-08-18] MEDS: amLODIPine 5 MG TAB PO SCH (09:41)
[2018-08-18] MEDS ORDERED: LACTULOSE 20 GM/30 ML UDC PO SCH ×2 (10:00→15:10)
[2018-08-18] MEDS ORDERED: MINERAL OIL 135 ML ENEM RC SCH (10:00)
[2018-08-18] MEDS: DRY DRESSING TP PRN (10:22)
[2018-08-18] MEDS: THERAHONEY GEL 42.5 GM TP PRN (10:22)
--- NOTE | 2018-08-18 10:22 | NUR ---
PATIENT HAD LOOSE BM, PATIENT CLEANED, CHANGED, AND REPOSITION FOR COMFORT AND TO OFFLOAD PRESSURE AREAS. SACRAL COCCYX WOUND CLEANED WITH NS, THERAHONEY APPLIED WITH DRIED DRESSING AND COVERED WITH OPTIFORM. PATIENT TOLERATED IT WELL. SAFETY AND ISOLATION PRECAUTION IN PLACE, CALL LIGHT WITHIN REACH, WILL CONTINUE TO MONITOR PATIENT.
--- NOTE | 2018-08-18 10:49 | NUR ---
Rubber Goods Finisher Note: I faxed inquiry to [facility], phone number , fax number .
[2018-08-18] MEDS: NACL 0.9% 1,000 ML IV SCH (10:58)
[2018-08-18] MEDS: INSULIN LISPRO SLIDING SCALE 100 UNITS/ML VIAL SUBQ PRN ×3 (12:54→20:55)
--- NOTE | 2018-08-18 12:54 | NUR ---
PATIENT HAD LOOSE BM, PATIENT CLEANED, CHANGED, AND REPOSITION FOR COMFORT AND TO OFFLOAD PRESSURE AREAS. OPTIFORM ON SACRALCOCCYX WOUND INTACT. FLEET OIL ENEMA GIVEN. BLOOD SUGAR 192, COVERAGE GIVEN. PATIENT TOLERATED IT WELL. SAFETY AND ISOLATION PRECAUTION IN PLACE, CALL LIGHT WITHIN REACH, WILL CONTINUE TO MONITOR PATIENT.
--- NOTE | 2018-08-18 13:18 | NUR ---
PT REFUSED HHN TX. PT VERBALIZED I HAD ONE ALREADY. NO SOB OR DISTRESS NOTED. WILL CONTINUE TO MONITOR.
--- NOTE | 2018-08-18 14:00 | NUR ---
Material Analyst Note: Per Marianne from [facility], phone number / , she will meet with patient's niece Sabrina between 2pm-3pm today.
--- NOTE | 2018-08-18 14:15 | NUR ---
ZIA HIGH IN TO SEE THE PATIENT. UPDATED HER WITH PLAN OF CARE AND CONDITION. TING FROM [facility] ALSO IN TO TALK TO THE PATIENT AND ANILA.
--- NOTE | 2018-08-18 14:40 | NUR ---
ADMITTING IN TO SEE PATIENT'S NIECE ANILA TO SIGN PAPERWORK. ADMITTING PAPERWORK SIGNED.
--- NOTE | 2018-08-18 15:04 | NUR ---
CALLED [facility], SPOKE TO OSCAR, SURFACE TO AIR WEAPONS OFFICER ABOUT PATIENT'S PNEUMONIA AND FLU VACCINE STATUS. OSCAR INFORMED RN THAT PNEUMONIA VACCINE WAS REFUSED, CONSENT FOR FLU VACCINE WAS SIGNED BUT NOT YET ADMINISTERED. WILL FOLLOW UP WITH PATIENT'S NIECE ANILA.
[2018-08-18] MEDS ORDERED: MAGNESIUM HYDROXIDE 2400 MG/30 ML UDC PO SCH (15:10)
--- NOTE | 2018-08-18 15:22 | NUR ---
Crystal Lapper Note: Per Leonela from [facility] , patient has exhausted her senior care facility Medicare days and she will contact case maker Catrachita from [facility] for snf authorization, case maker Tammy made aware.
[2018-08-18] MEDS: DRY DRESSING TP SCH (15:25)
[2018-08-18] MEDS: THERAHONEY GEL 42.5 GM TP SCH (15:25)
--- NOTE | 2018-08-18 15:32 | NUR ---
SOAP SUDS ENEMA GIVEN TO PATIENT. PATIENT TOLERATED IT WELL. PATIENT HAD LARGE BM CONSISTING OF MULTIPLE SIZED LUMPS. OPTIFORM DRESSING ON SACRALCOCCYX AREAL CHANGED. THERAHONEY AND NEW DRY DRESSING APPLIED. SAFETY AND ISOLATION PRECAUTION IN PLACE, CALL LIGHT WITHIN REACH. WILL CONTINUE TO MONITOR PATIENT.
--- NOTE | 2018-08-18 16:36 | NUR ---
Rehabilitation Therapy Aide Note: Per Marianne from [facility], phone number / patient's niece Sabrina is agreeable with hospice services.
[2018-08-18] MEDS ORDERED: VANCOMYCIN PER PHARMACY MC PRN (16:40)
--- NOTE | 2018-08-18 17:47 | NUR ---
BLOOD SUGAR 159, COVERAGE GIVEN. ORDERED MEDICATIONS GIVEN CRUSHED WITH APPLESAUCE. PATIENT TOLERATED IT WELL. WILL CONTINUE TO MONITOR PATIENT.
--- NOTE | 2018-08-18 18:07 | NUR ---
PATIENT AGITATED, STATING THAT "I'M HOT", AXILLARY TEMP TAKEN, 97.5. PATIENT ATTEMPTING TO TAKE OFF HER GOWN. ATIVAN PRN GIVEN. PATIENT TOLERATED IT WELL. WILL CONTINUE TO MONITOR PATIENT.
--- NOTE | 2018-08-18 19:29 | NUR ---
REPORT GIVEN TO MANAGER STUDY NURSE AT BEDSIDE FOR CONTINUITY OF CARE. PATIENT IN STABLE CONDITION.
--- NOTE | 2018-08-18 19:30 | NUR ---
REPORT RECEIVED FROM AM NURSE AT BEDSIDE. PT IN STABLE CONDITION. AAOX2. BOARD UPDATED AND INTRODUCED SELF. IV SITE L AC 20G INTACT AND PATENT RUNNING NS @20ML/HR. SKIN WARM, DRY, AND NOT INTACT DUE TO SACRAL PRESSURE ULCER. PT ON STRICT I&O'S. PT HAS NORMAN. PT IS CONSTIPATED WITH AN ORDER FOR SOAP RAJ ENEMA. BED LOCKED IN LOW POSITION. CALL RENTERIA WITHIN REACH. SAFETY PRECAUTIONS IN PLACE.
[2018-08-18] MEDS: OLANZapine 2.5 MG TAB PO SCH (20:53)
--- NOTE | 2018-08-18 20:53 | NUR ---
VASOTEC AND ZYPREXA CRUSHED AND PUT INTO APPLESAUCE GIVEN PO. VANCO HUNG AND RUNNING. HEPARIN GIVEN SUBQ. BS 200. HUMALOG 2 UNITS GIVEN SUBQ. LANTUS 12 UNITS GIVEN SUBQ. PT TOLERATED WELL.
[2018-08-18] MEDS: VANCOMYCIN 1,250 MG in NACL 0.9% 250 ML IV SCH (20:54)
[2018-08-18] MEDS: INSULIN LANTUS 100 UNITS/ML 10 ML VIAL SUBQ SCH (20:55)
--- NOTE | 2018-08-18 23:17 | NUR ---
KARINA HUNG AND RUNNING. PT TOLERATED WELL.
[2018-08-19] VITALS: BP 130/74
--- NOTE | 2018-08-19 01:10 | NUR ---
SOAP RAJ ENEMA GIVEN. PT TOLERATED WELL.
--- NOTE | 2018-08-19 03:00 | NUR ---
PT SLEEPING COMFORTABLY. NO S/S OF DISTRESS NOTED. WILL CONTINUE TO MONITOR.
[2018-08-19 04:00] VITALS: BP 135/71
[2018-08-19] MEDS: VANCOMYCIN 1,250 MG in NACL 0.9% 250 ML IV SCH ×2 (04:21→13:56)
--- NOTE | 2018-08-19 04:21 | NUR ---
ELIAS ANNE AND FE. PT TOLERATED WELL.
--- NOTE | 2018-08-19 05:00 | NUR ---
WOUND CARE DONE DUE TO SOILING. PT TOLERATED WELL.
[2018-08-19] MEDS: PIPER/TAZO 3.375GM/D5W PREMIX 50 ML IV SCH (05:36)
--- NOTE | 2018-08-19 05:36 | NUR ---
KARINA ANNE AND RUNNING. PT TOLERATED WELL. Addendum: 08/19/18 at 0652 by Jose Escoto RN BS [id number]. NO INSULIN COVERAGE NEEDED.
[2018-08-19] MEDS: BLOOD GLUCOSE MONITORING 1 DEV DEV FS SCH ×2 (05:38→11:55)
[2018-08-19 07:02] LABS: BASOPHILS # (AUTO) 0.1 K/uL (0.00-0.22); BASOPHILS % (AUTO) 0.6 % (0.0-2.0); EOSINOPHILS # (AUTO) 0.5 K/uL (0-0.4); EOSINOPHILS % (AUTO) 4.7 % (0.0-4.0); HEMATOCRIT 32.1 % (36-48); HEMOGLOBIN 10.3 g/dL (12.0-16.0); LYMPHOCYTES # (AUTO) 1.3 K/uL (2.5-16.5); LYMPHOCYTES % (AUTO) 11.8 % (20.5-51.1); MEAN CORPUSCULAR HEMOGLOBIN 28 pg (27-31); MEAN CORPUSCULAR HGB CONC 32 g/dL (33-37); MONOCYTES # (AUTO) 0.6 K/uL (0.8-1.0); MONOCYTES % (AUTO) 5.1 % (1.7-9.3); NEUTROPHILS # (AUTO) 8.7 K/uL (1.8-7.7); NEUTROPHILS % (AUTO) 77.8 % (42.2-75.2); PLATELET COUNT (AUTO) 372 K/uL (140-450); RED BLOOD CELL COUNT(AUTO) 3.74 MIL/uL (4.20-5.40); WHITE BLOOD COUNT (AUTO) 11.2 K/uL (4.8-10.8)
--- NOTE | 2018-08-19 07:05 | NUR ---
REPORT GIVEN TO AM NURSE AT BEDSIDE. PT IN STABLE CONDITION.
--- NOTE | 2018-08-19 07:13 | NUR ---
RECEIVED PT AWAKE ON BED, AAOX2, CONFUSED BUT ABLE TO FOLLOW COMMANDS, VERBALLY RESPONSIVE, NO SIGNS OF PAIN OR SOB, ON O2 AT 2L/NC, IVF INFUSING WELL. IV SITE PATENT, ASYMPTOMATIC AND INTACT. SKIN NOT INTACT DUE TO SACRALCOCCYX PRESSURE ULCER. UPDATED BOARD. SAFETY, SEIZURE, AND ISOLATION PRECAUTIONS IN PLACE WITH SIDE RAILS UP AND BED ALARM ON, WILL REPOSITION Q2H AND OFFLOAD PRESSURE AREAS, CALL LIGHT WITHIN REACH, WILL CONTINUE TO MONITOR PATIENT.
[2018-08-19] MEDS: ALBUTEROL SULFATE/IPRATROPIU 3 ML SOL IH SCH ×2 (07:27→12:50)
[2018-08-19 07:40] LABS: ANION GAP 3.7 (8-16); CARBON DIOXIDE 35.2 mmol/L (21-32); CREATININE 0.4 mg/dL (0.6-1.3); POTASSIUM 3.9 mmol/L (3.5-5.1)
[2018-08-19 07:58] VITALS: BP 135/76
[2018-08-19] MEDS: NACL 0.9% IRR 250 ML BOTTLE IR SCH (09:55)
[2018-08-19] MEDS ORDERED: VANCOMYCIN PER PHARMACY MC PRN (09:55)
[2018-08-19] MEDS: DRY DRESSING TP PRN (09:55)
[2018-08-19] MEDS: THERAHONEY GEL 42.5 GM TP PRN (09:55)
[2018-08-19] MEDS: NACL 0.9% 1,000 ML IV SCH (09:56)
[2018-08-19] MEDS: POLYETHYLENE GLYCOL 17 GM/PKT PO SCH (09:57)
[2018-08-19] MEDS: OXcarbazepine 150 MG TAB PO SCH (09:57)
[2018-08-19] MEDS: LACTOBACILLUS RHAMNOSUS GG 1 EACH CAP PO SCH (09:58)
[2018-08-19] MEDS: OLANZapine 5 MG TAB PO SCH (09:58)
[2018-08-19] MEDS: SIMETHICONE 80 MG TAB.CHEW PO SCH ×2 (09:58→12:02)
[2018-08-19] MEDS: amLODIPine 5 MG TAB PO SCH (09:58)
[2018-08-19] MEDS: MULTIVITAMIN/MINERALS 1 TAB PO SCH (09:58)
[2018-08-19] MEDS: ASPIRIN 81 MG TAB.CHEW PO SCH (09:58)
[2018-08-19] MEDS: SENNA 8.6 MG TAB PO SCH ×2 (09:58→12:02)
[2018-08-19] MEDS: ENALAPRIL 10 MG TAB PO SCH (09:59)
--- NOTE | 2018-08-19 10:05 | NUR ---
PATIENT HAD SOFT BM WITH CHUNKS. PATIENT CHANGED, CLEANED, AND REPOSITIONED FOR COMFORT AND TO OFFLOAD PRESSURE ULCERS. SACRALCOCCYX WOUND RINSED WITH NS, PAT DRY, THERAHONEY AND DRY DRESSING APPLIED WITH OPTIFORM APPLIED ON TOP. PATIENT TOLERATED IT WELL. WOUND PICTURE TAKEN. ORDERED MEDICATIONS CRUSHED AND GIVEN WITH APPLESAUCE, PATIENT TOLERATED IT WELL. NO SIGNS OF DISTRESS OR SOB NOTED ON ROOM AIR. PATIENT DENIES PAIN. SAFETY, SEIZURE, AND ISOLATION PRECAUTION IN PLACE, CALL LIGHT WITHIN REACH, WILL CONTINUE TO MONITOR PATIENT.
--- NOTE | 2018-08-19 10:09 | NUR ---
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
--- NOTE | 2018-08-19 10:13 | NUR ---
Metal Coater Note: Per Marianne from [facility], phone number / , they are arranging transportation for patient to return to [facility] today.
[2018-08-19] MEDS ORDERED: Dry Dressing TP ×2 (11:00→11:01)
[2018-08-19] MEDS ORDERED: GLUC-805 FS (11:00)
[2018-08-19] MEDS ORDERED: D50SYR IVP (11:00)
[2018-08-19] MEDS ORDERED: BISA10SU46 RC (11:00)
[2018-08-19] MEDS ORDERED: ACET-1182 PO (11:00)
[2018-08-19] MEDS ORDERED: ONDA2SOL45 IM/IVP (11:01)
[2018-08-19] MEDS ORDERED: HEPA500056 SUBQ (11:01)
[2018-08-19] MEDS ORDERED: [UNRECOGNIZED DRUG - CODE] IR ×2 (11:01)
[2018-08-19] MEDS ORDERED: Therahoney Gel TP ×2 (11:01)
[2018-08-19] MEDS ORDERED: HUMSLIDE SUBQ (11:01)
[2018-08-19] MEDS ORDERED: ALBU3SOL83 IH ×2 (11:01)
[2018-08-19] MEDS ORDERED: MULT-1736 PO (11:01)
[2018-08-19] MEDS ORDERED: OLAN5TAB30 PO (11:01)
[2018-08-19] MEDS ORDERED: LACT10CA PO (11:01)
[2018-08-19] MEDS ORDERED: VANC1.2511 IV (11:02)
[2018-08-19] MEDS ORDERED: ZOS3.375I IV (11:04)
--- NOTE | 2018-08-19 11:10 | NUR ---
KIT FROM [facility] CALLED. PATIENT WILL BE PICKED UP BY [facility] AT [phone]. CALL BACK NUMBER FOR KIT AT [phone]. RN VERBALIZED UNDERSTANDING.
[2018-08-19 12:00] VITALS: BP 126/75
[2018-08-19] MEDS ORDERED: PIPER/TAZO 3.375GM/D5W PREMIX 50 ML IV SCH (12:00)
[2018-08-19] MEDS: INSULIN LISPRO SLIDING SCALE 100 UNITS/ML VIAL SUBQ PRN (12:08)
--- NOTE | 2018-08-19 12:08 | NUR ---
BLOOD SUGAR 238, COVERAGE GIVEN. VS WNL. ORDERED MEDICATIONS GIVEN AND ZOSYN ANTIBIOTIC HUNG. PATIENT TOLERATED IT WELL. RESPIRATIONS EVEN AND UNLABORED ON ROOM AIR, NO DISTRESS OR SOB NOTED. O2 SATURATION 93%. SAFETY, ISOLATION, AND SEIZURE PRECAUTION NI PLACE, CALL LIGHT WITHIN REACH. WILL CONTINUE TO MONITOR PATIENT.
--- NOTE | 2018-08-19 12:57 | NUR ---
CALLED AND LEFT MESSAGE FOR ZIA BARAJAS FOR PATIENT AT [phone] TO INFORM HER OF PATIENT'S DISCHARGE BACK TO [facility]. WILL FOLLOW UP.
[2018-08-19] MEDS: DRY DRESSING TP SCH (14:17)
[2018-08-19] MEDS: THERAHONEY GEL 42.5 GM TP SCH (14:17)
--- NOTE | 2018-08-19 14:20 | NUR ---
IVPB ANTIBIOTICS GIVEN. PATIENT TOLERATED IT WELL. SOAP SUDS ENEMA GIVEN. MANUAL DISIMPACTION PERFORMED, PATIENT HAD SOFT STOOL WELL CHUNKS REMOVED. PATIENT TOLERATED IT WELL. SAFETY AND ISOLATION PRECAUTION IN PLACE, CALL LIGHT WITHIN REACH. WILL CONTINUE TO MONITOR PATIENT.
--- NOTE | 2018-08-19 15:00 | NUR ---
CALLED [facility] PORTILL[facility], GAVE REPORT TO MADYSON MOORE. OSCAR VERBALIZED UNDERSTANDING. WILL CONTINUE TO MONITOR PATIENT AND WAIT FOR [facility] TRANSPORTATION TO COME AND TRANSPORT PATIENT BACK TO THE [facility].
--- NOTE | 2018-08-19 15:55 | NUR ---
[facility] TRANSPORTATION CAME. WHEELED PATIENT OFF ON [facility]. PATIENT TOOK ALL HER BELONGINGS WITH HER.
== END 2018-08-19 15:55 | DRG 871 ==
LOC: MED 20:15 → MTU 08-15 01:38
PROVIDERS: ADMIT Family Medicine; ATTEND Family Medicine
DX: A41.59 Other Gram-negative sepsis (principal); L89.154 Pressure ulcer of sacral region, stage 4; J96.01 Acute respiratory failure with hypoxia; J69.0 Pneumonitis due to inhalation of food and vomit; N17.0 Acute kidney failure with tubular necrosis; E43 Unspecified severe protein-calorie malnutrition; J44.0 Chronic obstructive pulmonary disease with (acute) lower respiratory infection; N39.0 Urinary tract infection, site not specified; E87.1 Hypo-osmolality and hyponatremia; I50.30 Unspecified diastolic (congestive) heart failure; F02.81 Dementia in other diseases classified elsewhere, unspecified severity, with behavioral disturbance; Q61.3 Polycystic kidney, unspecified; F41.9 Anxiety disorder, unspecified; I11.0 Hypertensive heart disease with heart failure; I25.10 Atherosclerotic heart disease of native coronary artery without angina pectoris; I50.9 Heart failure, unspecified; M19.90 Unspecified osteoarthritis, unspecified site; G30.9 Alzheimer's disease, unspecified; R65.20 Severe sepsis without septic shock; D64.9 Anemia, unspecified; K21.0 Gastro-esophageal reflux disease with esophagitis; R13.10 Dysphagia, unspecified; D35.01 Benign neoplasm of right adrenal gland; K76.89 Other specified diseases of liver; E86.0 Dehydration; E11.21 Type 2 diabetes mellitus with diabetic nephropathy; Z90.710 Acquired absence of both cervix and uterus; Z86.73 Personal history of transient ischemic attack (TIA), and cerebral infarction without residual deficits; Z79.84 Long term (current) use of oral hypoglycemic drugs; Z79.82 Long term (current) use of aspirin; Z79.899 Other long term (current) drug therapy; Z86.718 Personal history of other venous thrombosis and embolism; Z68.24 Body mass index [BMI] 24.0-24.9, adult; Z85.841 Personal history of malignant neoplasm of brain; Z22.322 Carrier or suspected carrier of Methicillin resistant Staphylococcus aureus; Z74.01 Bed confinement status
CPT/HCPCS: 36415; 36600; 70450; 71045; 74018; 80048; 80053; 80202; 81001; 82150; 82803; 82948; 83605; 83690; 83735; 83880; 84100; 84443; 84484; 85025; 85610; 85730; 87040; 87070; 87081; 87086; 87186; 93005; 93970; 94640; 96365; 96367; 96375; 99285; J1644; J1815; J1956; J2543; J2930; J3370; J7030; J7060; J7613; J7620; J7644; Q0092